=== PATIENT | female | born 1970 | race Caucasian/White ===

== ENCOUNTER 2020-09-03 12:47 | Outpatient (REF) | payer OTHER, SELFPAY ==
[2020-09-03 13:35] LABS: MANUAL DIFF FLAG NO
[2020-09-03 13:37] LABS: Basophils Percent Auto 0.4 % (0-2); Eosinophils Absolute Auto 0.1 X10*3/uL (0.0-0.4); Eosinophils Percent Auto 1.6 % (0-4); Hematocrit 40.9 % (37-47); Hemoglobin 13.4 g/dl (12.0-16.0); Imm Gran Abs Auto 0.03 X10*3/uL (0.00-0.03); Imm Gran Pct Auto 0.4 % (0.0-0.4); Lymphocytes Absolute Auto 1.5 X10*3/uL (1.2-4.9); Lymphocytes Percent Auto 20.7 % (20-40); Mean Corpuscular HGB Conc 32.8 g/dl (31.0-35.0); Mean Corpuscular Hemoglobin 28.3 pg (27.0-33.0); Mean Corpuscular Volume 86.3 fL (80-98); Mean Platelet Volume 11.1 fL (9.4-12.3); Monocytes Absolute Auto 0.5 X10*3/uL (0.1-1.2); Monocytes Percent Auto 6.8 % (2-11); Neutrophils Absolute Auto 5.2 X10*3/uL (2.0-8.3); Neutrophils Percent Auto 70.1 % (45-73); Platelet Count 331 X10*3/uL (160-400); Red Blood Count 4.74 X10*6/uL (4.20-5.50); White Blood Count 7.4 X10*3/uL (4.8-10.8)
[2020-09-03 14:01] LABS: Alanine Aminotransferase 20 U/L (0-31); Albumin Level 4.3 g/dL (3.5-5.0); Alkaline Phosphatase 84 U/L (39-117); Anion Gap 16 (12-20); Aspartate Amino Transferase 16 U/L (5-31); Bilirubin Total 0.6 mg/dL (0.0-1.0); Blood Urea Nitrogen 17 mg/dL (9-16); Calcium 9.3 mg/dL (8.4-10.2); Carbon Dioxide 21 mmol/L (22-29); Chloride 105 mmol/L (96-108); Cholesterol 219 mg/dL; Estimated Glomerular Filt Rate > 60; Glucose Fasting 88 mg/dL (60-99); HDL Cholesterol 54 mg/dL; LDL Cholesterol Calculated 138 mg/dl; Potassium 4.4 mmol/L (3.3-5.1); Sodium 138 mmol/L (135-145); Total Protein 7.3 g/dL (6.5-8.0); Triglycerides 136 mg/dL
[2020-09-03 14:06] LABS: B Type Natriuretic Peptide 59 pg/mL (<100)
[2020-09-03 14:21] LABS: Free T4 (Free Thyroxine) 1.02 ng/dL (0.71-1.85); Thyroid Stimulating Hormone 1.99 uIU/mL (0.32-4.0); Vitamin D 25-OH Total 13.2 ng/mL (>30)
[2020-09-05 14:46] LABS: Thyroid Peroxidase Antibodies 81 IU/mL (<9)
== END 2020-09-03 12:48 | disposition home or self-care (01) ==
LOC: HO.HMGCLDS 12:47
PROVIDERS: PCP Internal Medicine; Visit Provider Internal Medicine
DX: Z00.01 Encounter for general adult medical examination with abnormal findings (principal); M79.89 Other specified soft tissue disorders; R07.89 Other chest pain; I47.1 Supraventricular tachycardia; E03.9 Hypothyroidism, unspecified
CPT/HCPCS: 36415; 80053; 80061; 82306; 83880; 84439; 84443; 85025; 86376

== ENCOUNTER → 2020-09-23 08:59 | Outpatient (BNVA) | payer OTHER, SELFPAY | PROVIDERS: PCP Internal Medicine; Referring Provider Internal Medicine; Visit Provider Internal Medicine Cardiovascular Disease ==

== ENCOUNTER → 2020-09-29 14:55 | Outpatient (REF) | payer OTHER, SELFPAY ==
--- NOTE | 2020-09-29 14:58 | CA_ITS ---
Transthoracic Echocardiogram Patient (Last, First, Middle): Debbi Crowe J Gender: Female Date of : 1970 Age: 50 Procedure Date: 09/29/2020 Procedure Type: Transthoracic Echocardiogram Location: OP Height: 160.02 cm Weight: 108.86 kg BSA: 2.09 m2 Heart Rate: bpm BP: 120 / 50 mmHg Supervisor Speech: YOLIS Vital MD: Satya Wellington MD Group Sales Coordinator: Satya Wellington MD Symptoms: R68.89 - Other general symptoms and signs Study Quality: Technically Difficult/contrast ECG Rhythm: Sinus Conclusions: - 1. Normal LV systolic function with grade 1 diastolic dysfunction 2. Normal cardiac valvular Dopplers 3. Normal RV systolic pressure 4. No pericardial effusion Findings Procedure Information Contrast agent, definity, is being given per protocol without apparent complications. Left Ventricle Normal left ventricular size, thickness, and systolic function. The visually estimated ejection fraction is between 60-65%. Spectral Doppler is indicative of an impaired relaxation filling pattern. E/E prime ratio is <8, consistent with normal filling pressures. Evidence suggests grade I (mild) diastolic dysfunction. Right Ventricle Normal right ventricular cavity size and systolic function. Atria The left atrium is normal in size. Interatrial shunt cannot be excluded. The right atrium is normal in size. Aortic Valve The aortic valve was not well visualized. There is no aortic valve stenosis. There is no aortic valve regurgitation. Mitral Valve Likely normal mitral valve structure and function. There is trace mitral valve regurgitation. There is no mitral valve stenosis. Pulmonic Valve The pulmonic valve was not well visualized. Tricuspid Valve Likely normal tricuspid valve structure and function. There is trace tricuspid valve regurgitation. The right ventricular systolic pressure is normal. The right ventricular systolic pressure is 32 mmHg. Normal right atrial pressure. There is no evidence of pulmonary hypertension. Great Vessels All visible segments of the aorta are normal in size. The pulmonary artery was not well visualized. Venous The inferior vena cava is normal in size and collapses greater than 50% with inspiration. Pericardium/Pleural There is no evidence of pericardial effusion. Prior Study Comparison No prior study available for comparison. Measurements 2D Linear Measurements IVSd: 0.88 0.6-0.9/0.6-1.0 cm LVIDd: 3.89 3.9-5.3/4.2-5.9 cm LVIDd Index: 1.86 2.4-3.2/2.2-3.1 cm/m2 LVIDs: 2.92 2.0-3.6 cm LVPWd: 0.87 0.7-1.1 cm Ao Root: 3.00 2.1-3.5 cm LA Diam: 3.90 2.7-3.8/3.0-4.0 cm LAIDs Index: 1.87 1.5-2.3 cm/m2 LV Mass: 124.97 67-162/88-224 g LV Mass Index: 59.79 43-95/49-115 g/m2 LVOT Diam: 2.00 3.0+(-)1.3 cm Mitral Valve MV Pk E: 1.16 MV PK A: 1.25 MV Decel Time: 194.00 E/A: 0.90 E'Lateral: 9.68 E'Medial: 9.57 E/E' Med: 12.10 E/E' Lat: 12.00 PHT: 57.00 MVA PHT: 3.86 Decel Steele: 6.01 Aortic Valve AoV Pk Agus: 1.92 AoV Mn Agus: 1.35 AoV VTI: 0.43 AoV Pk Grad: 15.00 Aov Mn Grad: 8.00 SURI Cont.VTI: 2.32 LVOT LVOT Pk Gaus: 1.48 LVOT Mn Agus: 0.87 LVOT VTI: 0.32 LVOT Pk Grad: 9.00 LVOT Mn Grad: 4.00 LVOT Diam: 2.00 LVOT Area: 3.14 Diastolic Function MV Pk E: 1.16 MV Pk A: 1.25 E/A: 0.90 E'Medial: 9.57 E/E' Med: 12.10 E' Laterial: 9.68 E/E' Lat: 12.00 Tricuspid Valve TR Pk Agus: 2.44 TR Pk Grad: 24.00 RA Press: 8.00 RVSP: 32.00 Great Vessels Aorta Ao Root-2D: 3.00 2.0-3.7 cm Ao Asc: 2.50 2.1-3.4 cm Ao Arch: 2.50 Updated in Other Vendor System with Status of Final Satya Wellington MD electronically signed on 09/30/2020 8:22:51 AM with status of Final
== END ==
LOC: HO.CARD 14:55
PROVIDERS: Visit Provider Internal Medicine Cardiovascular Disease
DX: R07.89 Other chest pain (principal); R68.89 Other general symptoms and signs; I47.1 Supraventricular tachycardia; I49.3 Ventricular premature depolarization; Z79.899 Other long term (current) drug therapy
CPT/HCPCS: 93306; Q9957

== ENCOUNTER 2020-10-08 10:40 | Outpatient (REF) | payer OTHER, SELFPAY ==
--- NOTE | ~2020-10-08 | MM_ITS ---
EXAMINATION: MM SCREENING DIGITAL BREAST TOMOSYNTHESIS, BILATERAL CLINICAL INFORMATION: Screening. Asymptomatic. Remote outside prior mammography over 10 years ago and no longer available. Family history breast cancer, mother. The lifetime risk of breast cancer based on the Tyrer-Cuzick Model is 13%. COMPARISON: None (current study represents new baseline exam). TECHNIQUE: Digital breast tomosynthesis is performed in both the craniocaudal and mediolateral oblique views along with computer-aided detection (CAD). Synthesized 2D images are generated from the tomosynthesis. Additional left MLO view is provided. FINDINGS: There are scattered areas of fibroglandular density (ACR BI-RADS breast composition Category b). Breast parenchymal pattern borders on predominantly fatty. Background stromal markings are unremarkable. There is no significant mass or architectural abnormality or abnormal calcifications. The axilla and skin contours are unremarkable. MM/MM tomosynthesis screening BI IMPRESSION: No mammographic evidence of malignancy. ASSESSMENT: BI-RADS 1: Negative RECOMMENDATION: Routine annual mammography screening. This patient's information was entered into a reminder system with a target due date for their next mammogram.
== END 2020-10-08 10:41 | disposition home or self-care (01) ==
LOC: HO.MAMMO 10:40
PROVIDERS: Visit Provider Internal Medicine
DX: Z12.31 Encounter for screening mammogram for malignant neoplasm of breast (principal)
CPT/HCPCS: 77063; 77067

== ENCOUNTER → 2020-10-10 08:09 | Outpatient (REF) | payer OTHER, SELFPAY ==
--- NOTE | ~2020-10-10 | NM_ITS ---
Exercise Myocardial perfusion study Indication: Chest pain to evaluate for myocardial ischemia Technique: The patient was brought in for an exercise perfusion study on 10/10/2020. Patient performed exercise as per Marc protocol and was injected 40 mCi of sestamibi was given intravenously one target HR was achieved. Images were obtained using the SPECT gamma camera interlaced with the gating device. Images were obtained in supine position. Resting perfusion study was performed on 10/11/2020. Patient was administered 40 mCi of sestamibi intravenously at rest. Images were then obtained in supine position. Images obtained with and without CT attenuation. Total DLP 133 mGy-cm. Images were processed with the software and compared side to side in short axis, horizontal long axis and vertical long axis views. Findings: The stress perfusion study showed nonattenuated images show minimal thinning of the anterior wall of the LV myocardium. Remainder of the LV myocardium is normally perfused. Attenuation corrected images show mildly reduced uptake in the apex of the LV myocardium.. The gated study shows normal LV systolic function with calculated LVEF of 62%. LV cavity is normal in in size. The gated study shows normal systolic wall thickening and contraction of all segments. There is no transient ischemic dilation. Resting study shows nonattenuated images show normal uptake of radiotracer in all of LV myocardium. Attenuation corrected show mildly reduced uptake apex of the LV myocardium.. Gating at rest reveals normal systolic wall motion with ejection fraction at 63%. The findings are consistent with no clear reversible defect suggestive of ischemia. NM/NM cardiolite stress test Impression: 1. Normal myocardial perfusion 2. Gated LVEF is 63% 3. Transient ischemic dilatation not present Stress EKG is negative for ischemia
--- NOTE | 2020-10-10 08:12 | CA_ITS ---
Acquisition Time: 2020-10-10 08:15:52 Total Exercise Time: 00:05:00 Test Indications: SVT, PAT, PVC Medications: SEE CHART Protocol: CARIN Max HR: 148 BPM 87% of Pred: 169 BPM Max BP: 188/088 mmHG Max Work Load: 7.0 METS Exercise stress test with exercise 5 min of Carin protocol, with moderate shortness of breath, no chest discomfort, with isolated PVC and one atrial cuplet, with normotensive response to exercise, without EKG changes meeting criteria for ischemia. Nuclear images pending. Test reviewed with Dr York. Referred By: Satya Wellington Overread By: EMMANUEL HARDY
== END ==
LOC: HO.CARD 08:09
PROVIDERS: Visit Provider Internal Medicine Cardiovascular Disease
DX: R07.9 Chest pain, unspecified (principal); R68.89 Other general symptoms and signs
CPT/HCPCS: 78452; 93017; A9500; J0153

== ENCOUNTER → 2020-11-03 11:05 | Outpatient (BNVA) | payer OTHER, SELFPAY | PROVIDERS: PCP Internal Medicine; Referring Provider Internal Medicine; Visit Provider Internal Medicine Cardiovascular Disease ==

== ENCOUNTER 2020-11-18 13:43 | Outpatient (REF) | payer OTHER, SELFPAY ==
[2020-11-18 16:31] LABS: MANUAL DIFF FLAG NO
[2020-11-18 16:34] LABS: Basophils Percent Auto 0.1 % (0-2); Eosinophils Absolute Auto 0.1 X10*3/uL (0.0-0.4); Eosinophils Percent Auto 1.5 % (0-4); Hematocrit 41.9 % (37-47); Hemoglobin 13.4 g/dl (12.0-16.0); Imm Gran Abs Auto 0.04 X10*3/uL (0.00-0.03); Imm Gran Pct Auto 0.5 % (0.0-0.4); Lymphocytes Absolute Auto 1.3 X10*3/uL (1.2-4.9); Lymphocytes Percent Auto 17.4 % (20-40); Mean Corpuscular Volume 87.7 fL (80-98); Mean Platelet Volume 11.6 fL (9.4-12.3); Monocytes Absolute Auto 0.7 X10*3/uL (0.1-1.2); Monocytes Percent Auto 8.7 % (2-11); Neutrophils Absolute Auto 5.4 X10*3/uL (2.0-8.3); Neutrophils Percent Auto 71.8 % (45-73); Platelet Count 337 X10*3/uL (160-400); Red Blood Count 4.78 X10*6/uL (4.20-5.50); White Blood Count 7.5 X10*3/uL (4.8-10.8)
[2020-11-18 16:58] LABS: Anion Gap 12 (12-20); Blood Urea Nitrogen 14 mg/dL (9-16); Calcium 9.6 mg/dL (8.4-10.2); Carbon Dioxide 28 mmol/L (22-29); Chloride 105 mmol/L (96-108); Estimated Glomerular Filt Rate 55; Glucose Random 90 mg/dL (60-115); Potassium 4.4 mmol/L (3.3-5.1); Sodium 141 mmol/L (135-145)
[2020-11-18 17:20] LABS: B Type Natriuretic Peptide 27 pg/mL (<100)
[2020-11-18 17:21] LABS: TSH reflex Free T4 2.78 uIU/mL (0.32-4.0)
[2020-11-18 17:32] LABS: Folate 5.5 ng/mL (> or = 4.0); Vitamin B12 225 pg/mL (200-900)
== END 2020-11-18 13:44 | disposition home or self-care (01) ==
LOC: HO.HMGCLDS 13:43
PROVIDERS: PCP Internal Medicine; Visit Provider Nurse Practitioner Family
DX: R60.0 Localized edema (principal)
CPT/HCPCS: 36415; 80048; 82607; 82746; 83880; 84443; 85025

== ENCOUNTER 2020-11-18 15:22 | Outpatient (REF) | payer OTHER, SELFPAY ==
--- NOTE | ~2020-11-18 | US_ITS ---
EXAMINATION: US VENOUS ULTRASOUND WITH DOPPLER LOWER EXTREMITY, BILATERAL CLINICAL INFORMATION: Localized edema and pain. COMPARISON: None TECHNIQUE: Ultrasound of the deep veins is performed from the hip to the calf with compression sonography and color and pulse Doppler assessment. Spectral analysis with color-flow imaging is performed. FINDINGS: RIGHT: There is normal venous compression and respiratory variation and augmented flow. The visualized common femoral vein, superficial femoral vein, profunda femoral vein, popliteal vein, and the trifurcation region shows no evidence of deep venous thrombosis. There is no significant popliteal fossa cyst. LEFT: There is normal venous compression and respiratory variation and augmented flow. The visualized common femoral vein, superficial femoral vein, profunda femoral vein, popliteal vein, and the trifurcation region shows no evidence of deep venous thrombosis. There is no significant popliteal fossa cyst. If the patient's symptoms persist, followup ultrasound in 5 days 7 days might be of value to exclude proximal propagation from a non-visualized calf vein. US/US venous duplex LE BI IMPRESSION: No DVT demonstrated in the bilateral lower extremity.
== END 2020-11-18 15:23 | disposition home or self-care (01) ==
LOC: HO.US 15:22
PROVIDERS: PCP Internal Medicine; Visit Provider Nurse Practitioner Family
DX: R60.0 Localized edema (principal)
CPT/HCPCS: 93970

== ENCOUNTER 2021-02-07 | Outpatient (REF) | payer OTHER, SELFPAY ==
[2021-02-08 13:14] LABS: Influenza A PCR NEGATIVE (Negative); Influenza B PCR NEGATIVE (Negative); Resp Syncy Virus RNA Qual PCR NEGATIVE (Negative); SARS COV2 PCR INHOUSE POSITIVE (Negative)
== END 2021-02-07 00:01 | disposition home or self-care (01) ==
LOC: HO.LNP
PROVIDERS: Visit Provider Internal Medicine
DX: Z20.822 Contact with and (suspected) exposure to COVID-19 (principal); J06.9 Acute upper respiratory infection, unspecified
CPT/HCPCS: 0241U; U0003; U0005

== ENCOUNTER 2021-02-08 20:24 | Emergency (ER) | payer OTHER, SELFPAY ==
--- NOTE | 2021-02-08 | ECG_ITS ---
Test Reason : REPEAT Blood Pressure : / mmHG Vent. Rate : 113 BPM Atrial Rate : 113 BPM P-R Int : 136 ms QRS Dur : 068 ms QT Int : 326 ms P-R-T Axes : 051 019 038 degrees QTc Int : 447 ms Sinus tachycardia Nonspecific T wave abnormality Anterior leads Abnormal ECG Heart rate has decreased Supraventricular tachycardia is no longer Present Referred By: Noemy Mead Electronically Signed By:TRINH RODRIGUEZ MD
[2021-02-08 20:52] VITALS: BP 178/82; PULSE 116; RESP 19; O2SAT 97
--- NOTE | 2021-02-08 20:53 | PC.NURSE ---
6mg adenosine given at 2045, 12 mg adenosine given at [address] Mead at bedside with V/O for both administrations.
--- NOTE | 2021-02-08 20:59 | ED.ARRPALP ---
HPI - Arrhythmia/Palpitations General Chief Complaint: Arrhythmia/Palpitations Stated Complaint: covid positive rapid heart rate Time Seen by Provider: 02/08/21 20:57 History of Present Illness HPI narrative: Patient 50-year-old female with a history SVT in the past. Presented today with having elevated heart rate. Palpitation. Patient attempted to use Valsalva but to no avail. Baseline already on metoprolol. No changes in medication. Patient has been compliant. Recently patient was tested positive for COVID. She had already received her Franky and Franky vaccine back in July Related Data Previous Rx's Medication Instructions Recorded cholecalciferol (vitamin D3) 1,250 1,250 mcg PO QWEEK 90 Days #13 cap 09/08/20 mcg (50,000 unit) capsule metoprolol succinate 50 mg 50 mg PO DAILY #30 tab 09/23/20 tablet,extended release 24 hr (Toprol XL) azithromycin 250 mg tablet See Rx Instructions PO .COMPLEX #6 02/07/21 tab cetirizine 10 mg tablet (Zyrtec) 10 mg PO DAILY PRN #30 tab 02/07/21 Allergies Allergy/AdvReac Type Severity Reaction Status Date / Time Sulfa (Sulfonamide Allergy Mild rash Verified 02/07/21 16:44 Antibiotics) morphine AdvReac Unknown sob if Verified 02/07/21 16:44 given too fast Review of Systems Review of Systems: Positive palpitations No fever no chills Positive coughing upper respiratory symptoms for the last 2 days Tested positive for COVID. Patient already received Franky Franky vaccine in July. All systems reviewed otherwise negative [facility] Past Medical History Attestation statement: The following information was validated with the patient. Medical History Morbid obesity due to excess calories Paroxysmal SVT (supraventricular tachycardia) PAT (paroxysmal atrial tachycardia) PVCs (premature ventricular contractions) Surgical History Hx of colonoscopy Family History Family History Mother Hx of breast cancer CAD (coronary artery disease), Onset Age: 70 Father CAD (coronary artery disease) S/P CABG x 4, Onset Age: 60 Pulmonary embolism, Onset Age: 72 Paternal Grandmother Diabetes mellitus Social History Social History Alcohol intake: never Patient Tobacco Use Status: Never used Tobacco Advance Directives: No Advance Directives Information Provided: No Physical Exam Vital Signs: Vital Signs: Last Vital Signs Pulse 116 H 02/08/21 20:52 Resp 19 02/08/21 20:52 BP 178/82 H 02/08/21 20:52 Pulse Ox 97 02/08/21 20:52 MDM - Arrhythmia/Palpitations MDM Narrative Medical decision making narrative: Patient initially was in SVT. Heart rate of 220. Attempted Valsalva maneuver. Attempted raising the legs up. To no avail. Heart rate still 220. Given 6 of adenosine. No avail patient did not convert. Additional 12 mg of adenosine given. Converted to a sinus pattern. Patient's heart rates dropping to approximately 100 will repeat EKG. Baseline electrolytes ordered. Patient also tested positive for COVID today. Patient is 50 years old is overweight. A potential candidate for regenerate monoclonal antibody. The phone number for antibody given. A message was left at the [facility] [employer] work provider line. Patient is in stable condition. Will discharge home and the electrolytes are normal. Repeat EKG showed a sinus pattern heart rate is 110 WI QRS QT within normal limits is no acute ST segment elevation. Patient back in a sinus rhythm. Will discharge patient home. Differential Diagnosis Differential diagnosis: Likely supraventricular tachycardia Medical Records Attestation: I reviewed the patient's medical records. Lab Data Attestation: I reviewed the patient's lab results. Result diagrams: 02/08/21 21:01 02/08/21 21:01 Labs: Lab Results 02/08/21 02/08/21 Range/Units 21:01 21:01 WBC 5.6 (4.8-10.8) X10*3/uL RBC 4.84 (4.20-5.50) X10*6/uL Hgb 13.6 (12.0-16.0) g/dl Hct 41.1 (37-47) % MCV 84.9 (80-98) fL MCH 28.1 (27.0-33.0) pg MCHC 33.1 (31.0-35.0) g/dl RDW 13.2 (11.0-16.0) % Plt Count 261 (160-400) X10*3/uL MPV 11.0 (9.4-12.3) fL Immature Gran % (Auto) 0.4 (0.0-0.4) % Neut % (Auto) 61.6 (45-73) % Lymph % (Auto) 19.7 L (20-40) % [place] % (Auto) 17.7 H (2-11) % Eos % (Auto) 0.4 (0-4) % Baso % (Auto) 0.2 (0-2) % Lymph # (Auto) 1.1 L (1.2-4.9) X10*3/uL [place] # (Auto) 1.0 (0.1-1.2) X10*3/uL Eos # (Auto) 0.0 (0.0-0.4) X10*3/uL Baso # (Auto) 0.0 (0.0-0.2) X10*3/uL Abs Immat Gran (auto) 0.02 (0.00-0.03) X10*3/uL Absolute Neuts (auto) 3.5 (2.0-8.3) X10*3/uL Absolute Nucleated RBC 0.000 (0.0-0.012) X10*3/uL Nucleated RBC % (auto) 0.0 (0.0-0.2) /100WBC Sodium 138 (135-145) mmol/L Potassium 4.1 (3.3-5.1) mmol/L Chloride 105 (96-108) mmol/L Carbon Dioxide 20 L (22-29) mmol/L Anion Gap 17 (12-20) BUN 13 (9-16) mg/dL Creatinine 0.90 (0.5-1.4) mg/dL Estim Creat Clear Calc TNP Estimated GFR > 60 Random Glucose 126 H (60-115) mg/dL Calcium 9.1 (8.4-10.2) mg/dL Discharge Plan Discharge Clinical Impression: Paroxysmal SVT (supraventricular tachycardia), COVID-19 Patient Disposition: Home, Self-Care Instructions: Supraventricular Tachycardia (ED), COVID-19 (Coronavirus Disease 2019) (ED) Additional Instructions: Please follow-up with [facility] at area code for covid antibody treatment Prescriptions: No Action cholecalciferol (vitamin D3) 1,250 mcg (50,000 unit) capsule 1,250 mcg PO QWEEK 90 Days Qty: 13 RF: 0 cetirizine [Zyrtec] 10 mg tablet 10 mg PO DAILY PRN (Reason: allergy symptoms) Qty: 30 RF: 0 azithromycin 250 mg tablet See Rx Instructions PO .COMPLEX Qty: 6 RF: 0 metoprolol succinate [Toprol XL] 50 mg tablet extended release 24 hr 50 mg PO DAILY Qty: 30 RF: 4 Referrals: Stuart Contreras MD [Physician] - 2 days
[2021-02-08 21:07] LABS: MANUAL DIFF FLAG NO
[2021-02-08 21:09] LABS: Basophils Percent Auto 0.2 % (0-2); Eosinophils Percent Auto 0.4 % (0-4); Hematocrit 41.1 % (37-47); Hemoglobin 13.6 g/dl (12.0-16.0); Imm Gran Abs Auto 0.02 X10*3/uL (0.00-0.03); Imm Gran Pct Auto 0.4 % (0.0-0.4); Lymphocytes Absolute Auto 1.1 X10*3/uL (1.2-4.9); Lymphocytes Percent Auto 19.7 % (20-40); Mean Corpuscular HGB Conc 33.1 g/dl (31.0-35.0); Mean Corpuscular Hemoglobin 28.1 pg (27.0-33.0); Mean Corpuscular Volume 84.9 fL (80-98); Monocytes Percent Auto 17.7 % (2-11); Neutrophils Absolute Auto 3.5 X10*3/uL (2.0-8.3); Neutrophils Percent Auto 61.6 % (45-73); Platelet Count 261 X10*3/uL (160-400); Red Blood Count 4.84 X10*6/uL (4.20-5.50); Red Cell Distribution Width 13.2 % (11.0-16.0); White Blood Count 5.6 X10*3/uL (4.8-10.8)
[2021-02-08 21:21] LABS: Anion Gap 17 (12-20); Blood Urea Nitrogen 13 mg/dL (9-16); Calcium 9.1 mg/dL (8.4-10.2); Carbon Dioxide 20 mmol/L (22-29); Chloride 105 mmol/L (96-108); Estimated Glomerular Filt Rate > 60; Glucose Random 126 mg/dL (60-115); Potassium 4.1 mmol/L (3.3-5.1); Sodium 138 mmol/L (135-145)
--- NOTE | 2021-02-08 21:30 | ECG_ITS ---
Test Reason : TACHYCARDIA Blood Pressure : / mmHG Vent. Rate : 211 BPM Atrial Rate : 000 BPM P-R Int : 000 ms QRS Dur : 066 ms QT Int : 204 ms P-R-T Axes : 000 024 163 degrees QTc Int : 382 ms Poor data quality, interpretation may be adversely affected Supraventricular tachycardia Marked ST abnormality, possible inferolateral subendocardial injury Abnormal ECG No previous ECGs available Referred By: Noemy Mead Electronically Signed By:TIRNH RODRIGUEZ MD
== END 2021-02-08 22:13 | disposition home or self-care (01) ==
PROVIDERS: Emergency Provider Emergency Medicine Emergency Medical Services
DX: I47.1 Supraventricular tachycardia (principal); U07.1 COVID-19
CPT/HCPCS: 36415; 80048; 85025; 93005; 99283

== ENCOUNTER → 2021-05-04 12:19 | Outpatient (BNVA) | payer OTHER, SELFPAY | PROVIDERS: PCP Internal Medicine; Referring Provider Internal Medicine; Visit Provider Internal Medicine Cardiovascular Disease ==

== ENCOUNTER 2021-05-14 02:34 | Emergency (ER) | payer OTHER, SELFPAY ==
--- NOTE | 2021-05-14 | ECG_ITS ---
Test Reason : chest pain Blood Pressure : / mmHG Vent. Rate : 083 BPM Atrial Rate : 083 BPM P-R Int : 226 ms QRS Dur : 114 ms QT Int : 404 ms P-R-T Axes : 053 039 031 degrees QTc Int : 474 ms Sinus rhythm with 1st degree A-V block Right bundle branch block Abnormal ECG When compared with ECG of 14-MAY-2021 02:40, Normal sinus rhythm has replaced Supraventricular tachycardia Vent. rate has decreased BY 117 BPM Right bundle branch block is now Present Referred By: Catracho Pollard Electronically Signed By:HARRISON ALAMO MD
[2021-05-14 02:37] VITALS: PULSE 200
[2021-05-14 02:38] VITALS: BMI 42.5
--- NOTE | 2021-05-14 02:59 | ED_ITS ---
HPI - Chest Pain General Chief Complaint: Chest Pain Stated Complaint: Afib Time Seen by Provider: 05/14/21 02:49 Source: patient Mode of arrival: ambulatory Limitations: no limitations History of Present Illness HPI narrative: 50-year-old female with a history of SVT who presents emergency department for evaluation of rapid heart rate. Patient states that her symptoms began around 1:45 a.m.. She states she felt her heart beating fast. She became lightheaded and dizzy. She also developed a pressure in the center of her chest. She states that feels like someone is sitting on her. The pain is 8/10 and is worse with breathing. She had associated nausea with no vomiting. The patient has a history of SVT and was on a beta-savana but this had to be stopped since she states that was causing her heart to skipped beats. The patient is being referred to an vessel specialist at [facility] but she states that the appointment is not until June 2021. The patient denied being ill in any way prior to the onset of her symptoms. She denied fever, chills, cough, abdominal pain, myalgias, arthralgias, diarrhea. Related Data Home Medications Medication Instructions Recorded Confirmed No Known Home Meds 05/04/21 05/04/21 Allergies Allergy/AdvReac Type Severity Reaction Status Date / Time Sulfa (Sulfonamide Allergy Mild rash Verified 02/20/21 15:05 Antibiotics) morphine AdvReac Unknown sob if Verified 02/20/21 15:05 given too fast Review of Systems Review of Systems: Yes all other systems are reviewed and are negative PMFSH Past Medical History Medical History Morbid obesity due to excess calories Paroxysmal SVT (supraventricular tachycardia) PAT (paroxysmal atrial tachycardia) PVCs (premature ventricular contractions) Surgical History Hx of colonoscopy Family History Family History Mother Hx of breast cancer CAD (coronary artery disease), Onset Age: 70 Father CAD (coronary artery disease) S/P CABG x 4, Onset Age: 60 Pulmonary embolism, Onset Age: 72 Paternal Grandmother Diabetes mellitus Social History Social History Alcohol intake: unknown Patient Tobacco Use Status: Never used Tobacco Use of substances other than those prescribed or required for medical reasons: No Advance Directives: No Advance Directives Information Provided: No Physical Exam Vital Signs: Vital Signs: BMI result Body Mass Index 42.5 Const: General: cooperative and no acute distress Orientation/consciousness: oriented to person and oriented to place Limitations: no limitations HENMT: Head: Yes normal to inspection, Yes normocephalic and Yes atraumatic Ears: external ears normal General nose exam: Normal external nose present Face and sinus: Yes normal facial exam Mouth: Normal oral and palatal mucosa present Throat: Yes posterior oropharynx normal Eyes: General: appearance normal, both eyes and all related structures Pupils: Equal, round and reactive pupils present Neck: Neck: Yes normal visual inspection, Yes no lymphadenopathy, Yes trachea midline and Yes supple Chest: Chest palpation & inspection: normal inspection of the chest and normal palpation of entire chest wall Resp: Effort & Inspection: normal respiratory effort and able to speak in co mplete sentences Auscultation: clear to auscultation bilaterally Cardio: Rate: tachycardic Rhythm: regular rhythm Heart sounds: S1 normal heart sound present, S2 normal heart sound present and no murmurs GI: Inspection: Yes normal to inspection Palpation (GI): Soft to palpation, nontender and no guarding Auscultation: normal bowel sounds : General: Yes no CVA tenderness Back/Spine/Pelvis: Back: no CVA tenderness Skin: General skin exam: no rashes or lesions noted Neuro: General: oriented to person and oriented to place Cranial nerves: Yes CN's II-XII intact bilaterally and Yes Equal, round and reactive pupils present Cognition (Neuro): normal cognition Motor exam (neuro): 5/5 motor strength present throughout Extrem: General: Yes normal to inspection Psych: Appearance: grossly normal Speech and movement: Normal speech and movement present Affect: normal affect Attitude: cooperative Thought process: Normal thought process present Thought content: Normal thought content present Course Course Course Narrative: 50-year-old female with known SVT who presents emergency department for evaluation of sudden onset of rapid heart rate at 1:45 a.m.. Patient had associated lightheadedness nausea and chest pressure. She states she has had similar symptoms in the past with her SVT. Patient tried vagal maneuvers at home but was unable to break the arrhythmia. Vital signs were stable. Exam did reveal rapid heart rate otherwise was unremarkable. I did attempt vagal maneuvers and emergency department (blowing into a syringe) without any success. An IV was obtained and the patient was given adenosine 6 mg IV and she converted to a sinus tachycardia. Post chemical cardioversion, patient's EKG was unremarkable. patient will be discharged home. She was given printed and verbal instructions. MDM - Chest Pain ECG Data ECG #1: Interpretation: 0240: SVT with a rate of 200, normal QRS and QTC intervals, no ST segment elevation, ST segment depression the 3 through V6 ECG #2: Attestation: I personally reviewed and interpreted this ECG as follows: Interpretation: 0302: Sinus rhythm with a rate of 80, normal FL interval QRS duration and QTC interval, no ST segment elevation, no ST segment depression, inverted T-wave in lead 3 and V1, no PACs, no PVCs Discharge Plan Discharge Clinical Impression: Supraventricular tachycardia Patient Disposition: Home, Self-Care Instructions: Supraventricular Tachycardia (ED) Additional Instructions: Your given adenosine 6 mg IV and this did successfully convert your rhythm from an SVT to a normal rhythm. Follow-up with your environmental laboratory technician in 1-2 weeks. Please return to the emergency department if your symptoms get worse or if you develop any symptoms that are concerning to you. Prescriptions: No Action No Known Home Meds RF: 0
[2021-05-14] MEDS: Adenosine 6 MG/2 ML VIAL IVPUSH (03:00)
--- NOTE | 2021-05-14 03:01 | ECG_ITS ---
Test Reason : CHEST PAIN Blood Pressure : / mmHG Vent. Rate : 200 BPM Atrial Rate : 000 BPM P-R Int : 000 ms QRS Dur : 068 ms QT Int : 228 ms P-R-T Axes : 000 026 166 degrees QTc Int : 416 ms Supraventricular tachycardia Marked ST abnormality, possible inferior subendocardial injury Marked ST abnormality, possible anterolateral subendocardial injury Abnormal ECG When compared with ECG of 08-FEB-2021 21:40, Vent. rate has increased BY [address] now depressed in Anterolateral leads Referred By: Catracho Pollard Electronically Signed By:Tip York
--- NOTE | 2021-05-14 03:01 | PC.NURSE ---
PT IN svt, EKG completed, provider in to assess pt. pt placed on monitor, medicated pt Mar. Heart rate down into the 84. Repeat EKG. pt placed on bedside monitor.
[2021-05-14] MEDS: 0.9 % Sodium Chloride 1,000 ML 999 ML IV (03:19)
--- NOTE | 2021-05-14 03:24 | PC.NURSE ---
pt reports feeling she feels much better after medication. Repeat EKG completed heart rate in the 80's. pt able to ambulate to bathroom with a steady gait, reports no dizziness or lightheadness.
[2021-05-14 03:28] VITALS: BP 152/89; PULSE 82; RESP 16; O2SAT 100
== END 2021-05-14 04:25 | disposition home or self-care (01) ==
PROVIDERS: Emergency Provider Emergency Medicine Emergency Medical Services
DX: I47.1 Supraventricular tachycardia (principal); R07.89 Other chest pain; Z79.899 Other long term (current) drug therapy
CPT/HCPCS: 93005; 96374; 96375; 96376; 99285; J0153

== ENCOUNTER 2021-06-29 06:47 | Outpatient (REF) | payer OTHER, SELFPAY ==
[2021-06-29 12:18] LABS: Anion Gap 10 (12-20); Blood Urea Nitrogen 12 mg/dL (9-16); Calcium 8.9 mg/dL (8.4-10.2); Carbon Dioxide 27 mmol/L (22-29); Chloride 105 mmol/L (96-108); Estimated Glomerular Filt Rate > 60; Glucose Fasting 101 mg/dL (60-99); Potassium 4.4 mmol/L (3.3-5.1); Sodium 138 mmol/L (135-145)
== END 2021-06-29 06:48 | disposition home or self-care (01) ==
LOC: HO.HMGCLDS 06:47
PROVIDERS: Visit Provider Internal Medicine
DX: M54.50 Low back pain, unspecified (principal); Z87.442 Personal history of urinary calculi
CPT/HCPCS: 36415; 80048

== ENCOUNTER 2021-08-24 08:53 | Outpatient (REF) | payer OTHER, SELFPAY ==
[2021-08-24 14:08] LABS: CT PCR NOT DETECTED (Not Detect.); NG PCR NOT DETECTED (Not Detect.)
[2021-08-25 03:50] LABS: ~HepC Num1 0.11 S/CO (0.00-0.79); ~Hepatitis C Antibody Nonreactive (Nonreactive)
[2021-08-25 03:51] LABS: HBc Num1 0.07 S/CO (0.00-0.79); HIV AB/AG Nonreactive (Nonreactive); HIV Num 1 0.07 S/CO (0.00-0.99); Hepatitis B Core Antibody Nonreactive (Nonreactive)
[2021-08-25 07:42] LABS: Syphilis Screen Nonreactive (Nonreactive)
[2021-08-25 10:55] LABS: BV Int Neg Control Negative (Negative); BV Int Pos Control Positive (Positive)
[2021-08-28 22:07] LABS: HPV mRNA E6/E7 rflx Not Detected (Not Detected)
== END 2021-08-24 08:54 | disposition home or self-care (01) ==
LOC: HO.LAB 08:53
PROVIDERS: PCP Internal Medicine; Visit Provider Advanced Practice Midwife
DX: Z01.419 Encounter for gynecological examination (general) (routine) without abnormal findings (principal); Z11.51 Encounter for screening for human papillomavirus (HPV); Z11.4 Encounter for screening for human immunodeficiency virus [HIV]; Z20.2 Contact with and (suspected) exposure to infections with a predominantly sexual mode of transmission; N76.0 Acute vaginitis
CPT/HCPCS: 36415; 86704; 86780; 86803; 87389; 87480; 87491; 87510; 87591; 87624; 87660; 88142

== ENCOUNTER 2021-09-19 19:52 | Emergency (ER) | payer OTHER, SELFPAY ==
--- NOTE | 2021-09-19 | ECG_ITS ---
Test Reason : chest pain Blood Pressure : / mmHG Vent. Rate : 208 BPM Atrial Rate : 000 BPM P-R Int : 000 ms QRS Dur : 068 ms QT Int : 216 ms P-R-T Axes : 000 023 191 degrees QTc Int : 402 ms Supraventricular tachycardia Marked ST abnormality, possible inferolateral subendocardial injury Abnormal ECG When compared with ECG of 14-MAY-2021 17:32, Supraventricular tachycardia has replaced Normal sinus rhythm Vent. rate has increased BY 125 BPM Right bundle branch block is no longer Present Referred By: Generic ED Physician Electronically Signed By:HARRISON ALAMO MD
--- NOTE | ~2021-09-19 | XR_ITS ---
EXAMINATION: XR CHEST CLINICAL INFORMATION: Chest pain COMPARISON: None TECHNIQUE: Frontal view of the chest was obtained. FINDINGS: The lungs are well-expanded and clear. The heart size and pulmonary vascularity is normal. No gross bony abnormality seen. XR/XR chest 1V IMPRESSION: Unremarkable chest exam
--- NOTE | ~2021-09-19 | CT_ITS ---
EXAMINATION: CT HEAD WITHOUT CONTRAST CLINICAL INFORMATION: brief trouble speaking perioral tingling COMPARISON: None TECHNIQUE: Contiguous axial imaging was performed from the skull base to vertex without intravenous administration of contrast. Coronal and sagittal reformatted images are performed at CT scanner This CT examination was performed using dose optimization techniques as appropriate, variously including the following: *Automated exposure control *Adjustment of mA and/or kV according to patient size (this includes techniques or standardized protocols for targeted exams where dose is matched to indication/reason for exam; i.e. extremities or head) *Use of iterative reconstruction technique DLP: 674 mGy-cm FINDINGS: There is no evidence of acute intracranial hemorrhage or territorial infarction. No abnormal mass effect or midline shift is seen. Guzman to white matter differentiation is well preserved. No extra-axial fluid collections are identified. The ventricles are normal in size. There is no abnormal attenuation within the brain parenchyma. The osseous structures and soft tissues are normal. The mastoid air cells and visualized portions of the paranasal sinuses are well aerated. CT/CT head/brain wo con IMPRESSION: No acute intracranial pathology.
[2021-09-19 19:56] VITALS: BMI 42.5
[2021-09-19] MEDS: Adenosine 6 MG/2 ML VIAL IVPUSH (20:21)
[2021-09-19 20:22] LABS: MANUAL DIFF FLAG NO
--- NOTE | 2021-09-19 20:23 | ED.CHESTPAIN ---
HPI - Chest Pain General Chief Complaint: Chest Pain Stated Complaint: PT believes to be having heart attack Time Seen by Provider: 09/19/21 20:02 Source: patient Limitations: no limitations History of Present Illness HPI narrative: This is a 51-year-old female who about 30 minutes prior to arrival felt her heart go into PSVT. She has had the same thing previously. She did have associated pain and pressure on her chest. She has had PSVT at least to 3 times previously, has responded to adenosine. She is due to see an staff research associate in October. The patient also complains of some tingling in her lower lip in the midline, no facial weakness, no numbness or weakness in her arms or legs. The patient states that the adenosine tends to work better if her arms and legs or up in the air. She has to be told when the dentist and he is being pushed. Patient notes that she did try Valsalva maneuvers at home for about 15 minutes. Her drove her to the ED. Related Data Home Medications Medication Instructions Recorded Confirmed ibuprofen 200 mg capsule 200 mg PO Q6H PRN 06/28/21 06/28/21 Previous Rx's Medication Instructions Recorded clotrimazole-betamethasone 1 1 appl TOPICAL BID PRN 7 Days #45 g 08/24/21 %-0.05 % topical cream fluconazole 150 mg tablet 150 mg PO ONCE PRN 1 Days #2 tab 08/24/21 (Diflucan) Allergies Allergy/AdvReac Type Severity Reaction Status Date / Time Sulfa (Sulfonamide Allergy Mild rash Verified 09/19/21 19:56 Antibiotics) morphine AdvReac Unknown sob if Verified 09/19/21 19:56 given too fast Review of Systems Review of Systems: Yes all other systems are reviewed and are negative Constitutional: Constitutional: Reports as per HPI and Denies fever(s) Eyes: Eyes: Reports as per HPI and Reports no additional eye complaints ENT: Reports system reviewed and no additional complaints, except as documented, Reports as per HPI, Denies nasal congestion, Denies nasal discharge and Denies sore throat Cardiovascular: Cardiovascular: Reports as per HPI, Reports chest pain and Denies dyspnea Respiratory: Respiratory: Reports as per HPI, Denies cough and Denies dyspnea Gastrointestinal: Gastrointestinal: Reports as per HPI, Denies abdominal pain, Denies diarrhea, Denies nausea and Denies vomiting Musculoskeletal: Musculoskeletal: Reports no additional musculoskeletal complaints and Reports numbness (Midline lower lip) Integumentary/Breasts: Skin/Breast: Reports as per HPI and Denies rash Neurologic: Reports as per HPI, Denies focal weakness and Reports numbness (Midline lower lip) Psychiatric: Psychiatric: Reports no additional psychiatric complaints and Reports as per HPI Endocrine: Endocrine: Reports no additional endocrine complaints and Reports as per HPI Hematologic/Lymphatic: Hematologic/Lymphatic: Reports no additional hematologic/lymphatic complaints, Reports as per HPI and Reports other (No peripheral edema) [facility] Past Medical History Medical History History of kidney stones Morbid obesity due to excess calories Paroxysmal SVT (supraventricular tachycardia) PAT (paroxysmal atrial tachycardia) PVCs (premature ventricular contractions) Right low back pain Surgical History H/O lithotripsy Hx of colonoscopy Family History Family History (Updated 08/24/21 @ 10:33 by Sahara Nuñez) Mother Hx of breast cancer CAD (coronary artery disease), Onset Age: 70 Father CAD (coronary artery disease) S/P CABG x 4, Onset Age: 60 Pulmonary embolism, Onset Age: 72 Paternal Grandmother Diabetes mellitus Maternal Aunt Mental health disorder Maternal Uncle Mental health disorder Maternal Grandmother Ovarian cancer Uterine cancer Son Motor vehicle accident (victim) Social History Social History Housing: House Alcohol intake: never Patient Tobacco Use Status: Never used Tobacco e-Cigarette/Vaping Use: Never Used Use of substances other than those prescribed or required for medical reasons: No Advance Directives: No Advance Directives Information Provided: Yes Patient : No service: No Current occupational status: employed Sexual orientation: Straight/Heterosexual Gender identity: Female Physical Exam Vital Signs: Vital Signs: Last Vital Signs Pulse 107 H 09/19/21 20:48 Resp 27 H 09/19/21 20:48 BP 162/105 H 09/19/21 20:48 Pulse Ox 98 09/19/21 20:48 BMI result Body Mass Index 42.5 PERRLA Conj Allisonia Mucous membranes moist Throat clear Neck supple Lungs CTA Heart tachycardia RRR no murmurs rubs or gallops Abs soft, non tender, non distended Extremities no pitting edema Neuro alert and oriented x 3, non focal Procedures Procedure Narrative Procedure Narrative: Chemical cardioversion for SVT, done with adenosine 6 mg IV. Patient was on the environmental monitoring specialist and pacemaker pads had been placed. MDM - Chest Pain MDM Narrative Medical decision making narrative: Patient with a history of PSVT since she was a teenager. Patient also has a feeling of palpitations at times, states she did in the last 6 months wear an event monitor. Patient had acute onset of tachycardia this evening. Patient appeared anxious. She initially complained of tingling of her bottom lip, not lateralizing. She later had a brief episode just after cardioversion where she felt like she could not speak however this lasted less than a minute or 2 and when I had re-evaluated her after hearing about this the patient was already speaking again. Patient had no facial droop, no arm or leg weakness. She Had no recurrence of symptoms in the emergency department. The patient was cardioverted chemically using adenosine 6 mg IV x1 dose. Patient did have a brief wide complex tachycardia during the time she was converted from SVT to sinus rhythm This patient had brief neurologic symptoms but also appeared very anxious. There are no lateralizing signs or symptoms. I doubt this was a TIA. Patient did have SVT with a heart rate around 200, but no AFib. CT of the brain was negative Critical care time for this life-threatening illness exclusive of all other billable procedures was approximately 35 minutes including initial evaluation of the patient, ordering tests, x-ray interpretation, EKG interpretation, medical consultation, documentation, reevaluation. Lab Data Attestation: I reviewed the patient's lab results. Result diagrams: 09/19/21 20:18 09/19/21 20:18 Labs: Lab Results 09/19/21 09/19/21 09/19/21 Range/Units 20:18 20:18 20:18 WBC 9.8 (4.8-10.8) X10*3/uL RBC 5.04 (4.20-5.50) X10*6/uL Hgb 14.0 (12.0-16.0) g/dl Hct 43.3 (37.0-47.0) % MCV 85.9 (80.0-98.0) fL MCH 27.8 (27.0-33.0) pg MCHC 32.3 (31.0-35.0) g/dl RDW 13.2 (11.0-16.0) % Plt Count 354 (160-400) X10*3/uL MPV 10.7 (9.4-12.3) fL Immature Gran % (Auto) 0.3 (0.0-0.4) % Neut % (Auto) 64.3 (45-73) % Lymph % (Auto) 24.9 (20-40) % Phillips % (Auto) 8.4 (2-11) % Eos % (Auto) 1.9 (0-4) % Baso % (Auto) 0.2 (0-2) % Lymph # (Auto) 2.4 (1.2-4.9) X10*3/uL Phillips # (Auto) 0.8 (0.1-1.2) X10*3/uL Eos # (Auto) 0.2 (0.0-0.4) X10*3/uL Baso # (Auto) 0.0 (0.0-0.2) X10*3/uL Abs Immat Gran (auto) 0.03 (0.00-0.03) X10*3/uL Absolute Neuts (auto) 6.3 (2.0-8.3) x10*3/uL Absolute Nucleated RBC 0.000 (0.0-0.012) X10*3/uL Nucleated RBC % (auto) 0.0 (0.0-0.2) /100WBC Sodium 138 (135-145) mmol/L Potassium 4.1 (3.3-5.1) mmol/L Chloride 104 (96-108) mmol/L Carbon Dioxide 22 (22-29) mmol/L Anion Gap 16 (12-20) BUN 16 (9-16) mg/dL Creatinine 0.96 (0.5-1.4) mg/dL Estim Creat Clear Calc 81.1 Estimated GFR > 60 Random Glucose 147 H (60-115) mg/dL Calcium 10.0 D (8.4-10.2) mg/dL Total Bilirubin 0.4 (0.0-1.0) mg/dL AST 16 (5-31) U/L ALT 22 (0-31) U/L Alkaline Phosphatase 80 (39-117) U/L Troponin I High Sens < 3.5 (<3.5-17.0) ng/L Total Protein 7.6 (6.5-8.0) g/dL Albumin 4.3 (3.5-5.0) g/dL Imaging Data Chest x-ray: Attestation: I personally reviewed and interpreted this imaging study as follows: Radiologist's impression: IMPRESSION: Unremarkable chest exam CT scan - head: Radiologist's impression: MPRESSION: No acute intracranial pathology. ECG Data ECG #1: Attestation: I personally reviewed and interpreted this ECG as follows: ECG interpretation date: 09/19/21 ECG interpretation time: 19:52 Interpretation: SVT with a rate of 208. Diffuse ST depression consistent with rate-related ischemia. ECG #2: Attestation: I personally reviewed and interpreted this ECG as follows: ECG interpretation date: 09/19/21 ECG interpretation time: 19:50 Prior ECG tracings: available for review Interpretation: Sinus tachycardia with a rate of 107. ST depression has largely resolved. There still slight T-wave inversion lead V2 and V3, slight ST depression in lead V3 through V5 Discharge Plan Discharge Clinical Impression: Paroxysmal SVT (supraventricular tachycardia), Anxiety, Facial paresthesia Patient Disposition: Home, Self-Care Instructions: Supraventricular Tachycardia (ED), Anxiety (ED) Additional Instructions: Continue current medications. Follow up with the staff research associate garbage person as scheduled. Return for any new or worsened symptoms Prescriptions: No Action ibuprofen 200 mg capsule 200 mg PO Q6H PRN0RF fluconazole [Diflucan] 150 mg tablet 150 mg PO ONCE PRN (Reason: personal) 1 Days Qty: 2 1RF Rx Instructions: may repeat dose in one week if symptoms do not resolve clotrimazole-betamethasone 1-0.05 % cream 1 appl topical BID PRN (Reason: itching) 7 Days Qty: 45 0RF Interventions: ED Discharge Assessment Last Done: 09/19/21 23:04 Discharge Date/Time: 09/19/21 23:04
--- NOTE | 2021-09-19 20:25 | PC.NURSE ---
Patient was given adenosine 6 mg to convert to normal sinus rhythm. Patient converted to normal sinus rhythm. Blood pressure increased to 160/85 post adenosine and then patient had left sided bottom lip numbness as well as difficulty speaking. Blood pressure increased to 185/105. Provider made aware and this journalists and other writers advocated to scan patient for possible TIA.
[2021-09-19 20:27] LABS: Basophils Percent Auto 0.2 % (0-2); Eosinophils Absolute Auto 0.2 X10*3/uL (0.0-0.4); Eosinophils Percent Auto 1.9 % (0-4); Hematocrit 43.3 % (37.0-47.0); Imm Gran Abs Auto 0.03 X10*3/uL (0.00-0.03); Imm Gran Pct Auto 0.3 % (0.0-0.4); Lymphocytes Absolute Auto 2.4 X10*3/uL (1.2-4.9); Lymphocytes Percent Auto 24.9 % (20-40); Mean Corpuscular HGB Conc 32.3 g/dl (31.0-35.0); Mean Corpuscular Hemoglobin 27.8 pg (27.0-33.0); Mean Corpuscular Volume 85.9 fL (80.0-98.0); Mean Platelet Volume 10.7 fL (9.4-12.3); Monocytes Absolute Auto 0.8 X10*3/uL (0.1-1.2); Monocytes Percent Auto 8.4 % (2-11); Neutrophils Absolute Auto 6.3 x10*3/uL (2.0-8.3); Neutrophils Percent Auto 64.3 % (45-73); Platelet Count 354 X10*3/uL (160-400); Red Blood Count 5.04 X10*6/uL (4.20-5.50); Red Cell Distribution Width 13.2 % (11.0-16.0); White Blood Count 9.8 X10*3/uL (4.8-10.8)
[2021-09-19 20:41] LABS: Alanine Aminotransferase 22 U/L (0-31); Albumin Level 4.3 g/dL (3.5-5.0); Alkaline Phosphatase 80 U/L (39-117); Anion Gap 16 (12-20); Aspartate Amino Transferase 16 U/L (5-31); Bilirubin Total 0.4 mg/dL (0.0-1.0); Blood Urea Nitrogen 16 mg/dL (9-16); Carbon Dioxide 22 mmol/L (22-29); Chloride 104 mmol/L (96-108); Creatinine Clr Calc Pharmacy 81.1; Estimated Glomerular Filt Rate > 60; Glucose Random 147 mg/dL (60-115); Potassium 4.1 mmol/L (3.3-5.1); Sodium 138 mmol/L (135-145); Total Protein 7.6 g/dL (6.5-8.0)
[2021-09-19 20:47] LABS: Troponin-I High Sensitivity < 3.5 ng/L (<3.5-17.0)
[2021-09-19 20:48] VITALS: BP 162/105; PULSE 107; PULSE 108; RESP 27; O2SAT 98
--- NOTE | 2021-09-19 20:49 | PC.NURSE ---
pt a&ox3, pt remains hypertensive/sinus tach on the monitor. chest pain/facial numbness now resolved. pt assisted to bedside commode. pending CT scan.
--- NOTE | 2021-09-20 | ECG_ITS ---
Test Reason : EKG Blood Pressure : / mmHG Vent. Rate : 107 BPM Atrial Rate : 107 BPM P-R Int : 146 ms QRS Dur : 074 ms QT Int : 354 ms P-R-T Axes : 060 035 033 degrees QTc Int : 472 ms Sinus tachycardia Nonspecific ST and T wave abnormality Abnormal ECG When compared with ECG of 19-SEP-2021 19:50, Vent. rate has decreased BY [address] less depressed in Inferior leads ST no longer depressed in Anterolateral leads Nonspecific T wave abnormality now evident in Anterior leads Sinus tachycardia has replaced Supraventricular tachycardia Referred By: Rohit Allen Electronically Signed By:HARRISON ALAMO MD
== END 2021-09-19 23:04 | disposition home or self-care (01) ==
PROVIDERS: Emergency Provider Emergency Medicine; PCP Internal Medicine
DX: I47.1 Supraventricular tachycardia (principal); F41.9 Anxiety disorder, unspecified
CPT/HCPCS: 36415; 70450; 71045; 80053; 84484; 85025; 93005; 96374; 96375; 99284; 99285; J0153

== ENCOUNTER 2021-09-29 07:01 | Outpatient (REF) | payer OTHER, SELFPAY ==
[2021-09-29 08:24] LABS: B Type Natriuretic Peptide 22 pg/mL (<100)
[2021-09-29 12:12] LABS: Anion Gap 14 (12-20); Blood Urea Nitrogen 19 mg/dL (9-16); Carbon Dioxide 25 mmol/L (22-29); Chloride 104 mmol/L (96-108); Estimated Glomerular Filt Rate > 60; Glucose Random 102 mg/dL (60-115); Magnesium 2.3 mg/dL (1.6-2.6); Potassium 4.4 mmol/L (3.3-5.1); Sodium 139 mmol/L (135-145)
== END 2021-09-29 07:02 | disposition home or self-care (01) ==
LOC: HO.HMGCLDS 07:01
PROVIDERS: PCP Internal Medicine; Visit Provider Internal Medicine Cardiovascular Disease
DX: R06.00 Dyspnea, unspecified (principal)
CPT/HCPCS: 36415; 80051; 82565; 82947; 83735; 83880; 84520

== ENCOUNTER 2021-11-23 07:36 | Outpatient (REF) | payer OTHER, SELFPAY ==
[2021-11-23 07:51] LABS: MANUAL DIFF FLAG NO
[2021-11-23 08:07] LABS: Basophils Percent Auto 0.3 % (0-2); Eosinophils Absolute Auto 0.1 X10*3/uL (0.0-0.4); Eosinophils Percent Auto 2.2 % (0-4); Hematocrit 41.7 % (37.0-47.0); Hemoglobin 13.3 g/dl (12.0-16.0); Imm Gran Abs Auto 0.02 X10*3/uL (0.00-0.03); Imm Gran Pct Auto 0.3 % (0.0-0.4); Lymphocytes Absolute Auto 1.2 X10*3/uL (1.2-4.9); Lymphocytes Percent Auto 18.7 % (20-40); Mean Corpuscular HGB Conc 31.9 g/dl (31.0-35.0); Mean Corpuscular Hemoglobin 27.5 pg (27.0-33.0); Mean Corpuscular Volume 86.3 fL (80.0-98.0); Mean Platelet Volume 10.7 fL (9.4-12.3); Monocytes Absolute Auto 0.5 X10*3/uL (0.1-1.2); Monocytes Percent Auto 7.2 % (2-11); Neutrophils Absolute Auto 4.5 x10*3/uL (2.0-8.3); Neutrophils Percent Auto 71.3 % (45-73); Platelet Count 335 X10*3/uL (160-400); Red Blood Count 4.83 X10*6/uL (4.20-5.50); White Blood Count 6.4 X10*3/uL (4.8-10.8)
[2021-11-23 08:24] LABS: INTERNATIONAL NORM RATIO 0.9 (0.9-1.1); Prothrombin Time 10.2 SEC (10.0-13.1)
[2021-11-23 08:38] LABS: Anion Gap 15 (12-20); Blood Urea Nitrogen 13 mg/dL (9-16); Calcium 9.2 mg/dL (8.4-10.2); Carbon Dioxide 26 mmol/L (22-29); Chloride 104 mmol/L (96-108); Estimated Glomerular Filt Rate > 60; Glucose Random 107 mg/dL (60-115); Potassium 4.5 mmol/L (3.3-5.1); Sodium 140 mmol/L (135-145)
== END 2021-11-23 07:37 | disposition home or self-care (01) ==
LOC: HO.LAB 07:36
PROVIDERS: PCP Internal Medicine; Visit Provider Internal Medicine Cardiovascular Disease
DX: I47.1 Supraventricular tachycardia (principal)
CPT/HCPCS: 36415; 80048; 85025; 85610

== ENCOUNTER 2022-01-26 07:57 | Outpatient (REF) | payer OTHER, SELFPAY ==
--- NOTE | ~2022-01-26 | MM_ITS ---
EXAMINATION: MM SCREENING DIGITAL BREAST TOMOSYNTHESIS, BILATERAL CLINICAL INFORMATION: Screening. Asymptomatic. Family history breast cancer, mother. The lifetime risk of breast cancer based on the Tyrer-Cuzick Model is 13%. COMPARISON: Mammography: 10/08/2020 (new baseline). TECHNIQUE: Digital breast tomosynthesis is performed in both the craniocaudal and mediolateral oblique views along with computer-aided detection (CAD). Synthesized 2D images are generated from the tomosynthesis. Additional left MLO view is provided. FINDINGS: There are scattered areas of fibroglandular density (ACR BI-RADS breast composition Category b). There are no significant masses, abnormal calcifications, or other abnormalities. Parenchymal pattern is similar to prior new baseline exam. No architectural abnormality. The axilla and skin contours are unremarkable. No significant changes. MM/MM tomosynthesis screening BI IMPRESSION: No mammographic evidence of malignancy. ASSESSMENT: BI-RADS 1: Negative RECOMMENDATION: Routine annual mammography screening. This patient's information was entered into a reminder system with a target due date for their next mammogram.
== END 2022-01-26 07:58 | disposition home or self-care (01) ==
LOC: HO.MAMMO 07:57
PROVIDERS: Visit Provider Internal Medicine
DX: Z12.31 Encounter for screening mammogram for malignant neoplasm of breast (principal)
CPT/HCPCS: 77063; 77067

== ENCOUNTER 2022-04-28 10:45 | Outpatient (REF) | payer OTHER, SELFPAY ==
[2022-04-28 14:21] LABS: Cholesterol 222 mg/dL; HDL Cholesterol 52 mg/dL; LDL Cholesterol Calculated 146 mg/dl; Triglycerides 123 mg/dL
[2022-04-28 14:38] LABS: TSH reflex Free T4 2.29 uIU/mL (0.32-4.0); Vitamin D 25-OH Total 20.9 ng/mL (>30)
== END 2022-04-28 10:46 | disposition home or self-care (01) ==
LOC: HO.HMGCLDS 10:45
PROVIDERS: PCP Internal Medicine; Visit Provider Internal Medicine
DX: Z00.01 Encounter for general adult medical examination with abnormal findings (principal); I47.1 Supraventricular tachycardia; I49.3 Ventricular premature depolarization; R60.0 Localized edema; E66.01 Morbid (severe) obesity due to excess calories
CPT/HCPCS: 36415; 80061; 82306; 84443

== ENCOUNTER → 2022-08-27 08:47 | Outpatient (BNVA) | payer OTHER, SELFPAY | PROVIDERS: PCP Internal Medicine; Visit Provider Advanced Practice Midwife ==

== ENCOUNTER 2023-01-10 14:03 | Outpatient (AMB) | payer OTHER, SELFPAY ==
--- NOTE | 2023-01-10 14:20 | MHC.PC.OV ---
Vital Signs 01/10/23 14:20 01/10/23 14:27 Height 5 ft 3 in 5 ft 3 in Weight 268 lb BMI 47.5 BP 130/80 Blood Pressure Location Lt brachial Position Sitting Pulse 90 Pulse Source Pulse Oximeter Pulse Oximetry (%) 98 Oxygen Delivery Method Room Air Intake Visit Reasons: Annual Physical Intake Note: patient is here today for her annul PE Allergies Sulfa (Sulfonamide Antibiotics) Allergy (Mild, Verified 01/10/23 15:13) rash morphine Adverse Reaction (Unknown, Verified 01/10/23 15:13) sob if given too fast Medication List - Last Reconciled 01/10/23 by Eneida Albert MD clotrimazole-betamethasone 1-0.05 % 1 appl topical BID PRN 7 days ibuprofen 200 mg PO Q6H PRN Tobacco use date assessed: 01/10/23 Dental Screening Dental Screen Date: 01/10/23 Did you have a dental visit in the last 12 months?: No Did you have a dental problem in the last 6 months where you did not have access to dental care?: No Was dental information given to patient?: Patient has dentist HPI Annual Physical HPI Details 52-year-old lady with dyslipidemia, morbid obesity, IBS and history of PVCs, here today for her physical exam. Had radiofrequency ablation for her PVCs, but still getting episodes of palpitations. Denies any accompanying chest pain, but easily gets short of breath on minimal exertion. She goes to [facility] for her routine Pap and pelvic exam, last pap smear 08/24/21, Last mammogram 01/26/22, and has had a screening colonoscopy done in her 40s. She has had recurrent rash mainly under both breasts specially when the weather is warmer. [facility] Medical History (Updated 01/15/23 @ 00:22 by Eneida Albert MD) Annual visit for general adult medical examination with abnormal findings Vitamin D deficiency Dyslipidemia (high LDL; low HDL) Dyspnea on minimal exertion Irritable bowel syndrome Colon cancer screening History of kidney stones PVCs (premature ventricular contractions) Morbid obesity due to excess calories Paroxysmal SVT (supraventricular tachycardia) Surgical History History of cardiac radiofrequency ablation H/O lithotripsy Hx of colonoscopy Family History Mother Hx of breast cancer CAD (coronary artery disease), Onset Age: 70 Father CAD (coronary artery disease) S/P CABG x 4, Onset Age: 60 Pulmonary embolism, Onset Age: 72 Paternal Grandmother Diabetes mellitus Maternal Aunt Mental health disorder Maternal Uncle Mental health disorder Maternal Grandmother Ovarian cancer Uterine cancer Son Motor vehicle accident (victim) Social History Housing: House Alcohol intake: never Patient Tobacco Use Status: Never used Tobacco e-Cigarette/Vaping Use: Never Used service: No Current occupational status: employed Sexual orientation: Straight/Heterosexual Gender identity: Female Cognitive needs: No Hearing needs: No Vision needs: No Female Reproductive History Menstrual Other: Sees [facility] for routine Pap and pelvic exam Questionnaire PHQ-9 Over the last 2 weeks, how often have you been bothered by any of the following problems? 1. Little interest or pleasure in doing things: not at all 2. Feeling down, depressed, or hopeless: not at all 3. Trouble falling or staying asleep, or sleeping too much: several days 4. Feeling tired or having little energy: several days 5. Poor appetite or overeating: not at all 6. Feeling bad about yourself - or that you are a failure or have let yourself or your family down: not at all 7. Trouble concentrating on things, such as reading the newspaper or watching television: several days 8. Moving or speaking so slowly that other people could have noticed. Or the opposite - being so fidgety or restless that you have been moving around a lot more than usual: not at all 9. Thoughts that you would be better off or of hurting yourself in some way: not at all Total score: 3 Depression Screening Interpretation: Negative 56032 - PHQ-9 Billing: Yes Source: Developed by Drs. Remington Gutierrez, Pao Bradford, Garret Sinclair and colleagues, with an educational jenna from [employer]. Thrive Questionnaire Date Thrive assessed: 01/10/23 I am a: Patient What is your living situation today?: I have a steady place to live Within the past 12 months, did the food you bought not last and you didn't have the money to get more?: Never true Within the past 12 months, did you worry whether your food would run out before you got money to buy more?: Never true Do you have trouble paying for medicines?: No Do you have trouble getting transportation to medical appointments?: No Do you have trouble paying your heating and electricity bill?: No Do you have trouble taking care of your child, family member or friend?: No Do you have trouble with day-to-day activities such as bathing, preparing meals, shopping, managing finances, etc.?: No Are you currently unemployed and looking for a job?: No Are you interested in more education?: No Please select the resources that you would like help with: None AUDIT C Alcohol Use Questionnaire (AUDIT-C) 1. How often do you have a drink containing alcohol?: Never Total Score: 0 ZULMA-7 AMB Questionnaire ZULMA-7 Date ZULMA - 7 assessed: 01/10/23 Feeling nervous, anxious, or on edge: 0 = Not at all Not being able to stop or control worryin = Not at all Worrying too much about different things: 0 = Not at all Trouble relaxin = Not at all Being so restless that it is hard to sit still: 0 = Not at all Becoming easily annoyed or irritable: 0 = Not at all Feeling afraid as if something awful might happen: 0 = Not at all Total ZULMA-7 score (0-4 normal; 5-9 mild; 10-14 moderate; 15-21 severe): 0 Source: Developed by Drs. Remington Gutierrez, Pao Bradford, Garret Sinclair and colleagues, with an educational jenna from [employer]. ZULMA-7 Assessment Billing ZULMA-7 Assessment Tool: ZULMA-7 Assessment [id number] Review of Systems Const Denies fever(s), Denies headache(s), Reports malaise, Reports snoring, Denies weakness and Reports weight gain Eyes Denies change in vision ENT Denies dizziness, Denies headache(s), Denies nasal congestion, Denies nasal discharge and Denies sore throat Card Denies chest pain, Denies chest pain at rest, Denies chest pain with activity, Denies lightheadedness, Denies palpitations and Denies dyspnea Resp Denies cough, Denies dyspnea and Reports snoring GI Denies abdominal pain, Reports bloating and Denies heartburn Denies urinary frequency and Denies dysuria Musc Reports arthralgias (Knees) and Reports stiffness Skin/Breast Details: Complaining recurrent, slightly pruritic rash underneath both breasts, worse when the weather is warmer Denies breast pain, Denies breast mass and Denies change in breast shape Neuro Denies dizziness, Denies headache(s) and Denies weakness Psych Reports no additional complaints Endo Reports no additional complaints and Denies palpitations Augustin/Lymph Denies easy bruising Aller/Immun Reports no additional complaints Physical exam (Primary Care) Vital Signs: Last Vital Signs Pulse 90 01/10/23 14:27 BP 130/80 01/10/23 14:27 Pulse Ox 98 01/10/23 14:27 Oxygen Delivery Method Room Air 01/10/23 14:27 BMI result Body Mass Index 47.5 BMI Assessment/Plan discussion: High BMI High, discussed plan: lifestyle, weight reduction, dietary and physical activity Tobacco/Smoking Status: Tobacco use Status Tobacco use date assessed 01/10/23 01/10/23 14:21 Patient Tobacco Use Status Never used Tobacco 01/10/23 14:21 e-Cigarette/Vaping Use Never Used 01/10/23 14:21 PHQ-9: PHQ-9 Score PHQ-9: Total score 3 01/10/23 15:16 Depression Screening Interpretation: Negative Thrive Assessment: Date of Thrive Assessment Date Thrive assessed 01/10/23 01/10/23 15:16 Const Other: Alert oriented x3, no acute distress noted ambulatory with normal gait Orientation/consciousness: patient oriented x3 [facility] Head: Yes normocephalic Ears: external ears normal, TM's normal bilaterally and EAC's normal General nose exam: Normal external nose present Face and sinus: Yes face symmetric Mouth: Normal oral and palatal mucosa present, oropharynx normal and moist mucous membranes Eyes General: appearance normal, both eyes and all related structures Neck Other: Supple , no lymphadenopathy, thyroid gland nonpalpable Chest Breast/axilla palpation: normal palpation of the breasts Resp Auscultation: clear to auscultation bilaterally Cardio Other: S1-S2 present regular rate and rhythm with occasional skipped beats noted GI Inspection: Yes normal to inspection and Yes obesity Palpation (GI): Soft to palpation, nontender, no guarding and no masses Auscultation: normal bowel sounds General: Yes no CVA tenderness Back/Spine/Pelvis Back: no CVA tenderness and No back tenderness Thoracic/Lumbar Spine: straight leg raise negative bilaterally and paraspinal muscle tenderness on the right in the lower lumbar Skin Other: Erythematous moist patch on under side of both breasts Neuro General: patient oriented x3, gait normal, tone normal, moves all extremities and no focal motor deficits Cranial nerves: Yes CN's II-XII intact bilaterally Cognition (Neuro): normal cognition Gait exam (Neuro): Normal gait present Extrem General: Yes full ROM and Yes edema (Lower have for both lower extremities, nonpitting) Psych Appearance: grossly normal and well kempt Mental Status: mental status grossly normal Speech and movement: Normal speech and movement present Affect: normal affect Attitude: cooperative Thought process: Normal thought process present Assessment and Plan Assessment & Plan (1) Annual visit for general adult medical examination with abnormal findings: Code(s): Z00.01 - Encounter for general adult medical examination with abnormal findings Plan: Will check appropriate labs. Recommended dental visit every 6 months and regular eye exams, at least every 2 years. Take adequate calcium in diet and vitamin-D 3 at 2000 IU per cap once a day, in addition to weight-bearing exercises to help maintain good muscle tone and weight control. Instructed to do self-breast exam, and recommended to get yearly mammogram, due again later this year. She goes to [facility] for her routine Pap and pelvic exam, not due. Referred for screening colonoscopy. Reminded to get her COVID booster and her flu shot for this year (2) PVCs (premature ventricular contractions): Code(s): I49.3 - Ventricular premature depolarization Plan: Referred back to cardiology for further evaluation management (3) Exercise intolerance: Code(s): R68.89 - Other general symptoms and signs Plan: Referred back to Cardiology (4) Dyspnea on minimal exertion: Code(s): R06.09 - Other forms of dyspnea Plan: Cardiology consult obtained (5) Morbid obesity due to excess calories: Code(s): E66.01 - Morbid (severe) obesity due to excess calories Plan: . Discussed need to increase activity and weight reduction. Recommended focusing on improving health instead of dieting. Mediterranean diet is a healthy diet that helps, limit food high in fat, sugar, and calories. Eat slowly, pay attention to portion sizes, plan your meals ahead of time, start regular physical activity, at least 150 minutes of moderate intensity exercise, or 90 minutes per week of vigorous exercise. Keeping a food diary, tracking what you eat and your physical activity can help assess what improvements you can make. There are many health problems associated with being overweight/obese, so it is important to improve your diet and exercise. There are medications and surgical options available, but Lifestyle changes are the 1st step. (6) Skin cancer screening: Code(s): Z12.83 - Encounter for screening for malignant neoplasm of skin Plan: Dermatology consult obtained (7) Colon cancer screening: Code(s): Z12.11 - Encounter for screening for malignant neoplasm of colon Plan: Patient declined colonoscopy will order Cologuard testing (8) Dyslipidemia (high LDL; low HDL): Code(s): E78.5 - Hyperlipidemia, unspecified Plan: Fasting lipid panel ordered, continue with adherence to healthy eating habits and regular exercise. (9) Vitamin D deficiency: Code(s): E55.9 - Vitamin D deficiency, unspecified Plan: Will check vitamin-D level Orders: Orders Basic Metabolic Panel Fasting 01/10/23 E55.9 - Vitamin D deficiency, unspecified, E66.01 - Morbid (severe) obesity due to excess calories, E78.5 - Hyperlipidemia, unspecified, I49.3 - Ventricular premature depolarization, R06.09 - Other forms of dyspnea, R60.0 - Localized edema, R68.89 - Other general symptoms and signs Alanine Aminotransferase 01/10/23 E55.9 - Vitamin D deficiency, unspecified, E66.01 - Morbid (severe) obesity due to excess calories, E78.5 - Hyperlipidemia, unspecified, I49.3 - Ventricular premature depolarization, R06.09 - Other forms of dyspnea, R60.0 - Localized edema, R68.89 - Other general symptoms and signs Complete Blood Count Auto Diff 01/10/23 E55.9 - Vitamin D deficiency, unspecified, E66.01 - Morbid (severe) obesity due to excess calories, E78.5 - Hyperlipidemia, unspecified, I49.3 - Ventricular premature depolarization, R06.09 - Other forms of dyspnea, R60.0 - Localized edema, R68.89 - Other general symptoms and signs TSH reflex Free T4 01/10/23 E55.9 - Vitamin D deficiency, unspecified, E66.01 - Morbid (severe) obesity due to excess calories, E78.5 - Hyperlipidemia, unspecified, I49.3 - Ventricular premature depolarization, R06.09 - Other forms of dyspnea, R60.0 - Localized edema, R68.89 - Other general symptoms and signs Vitamin D 25-OH Total 01/10/23 E55.9 - Vitamin D deficiency, unspecified, E66.01 - Morbid (severe) obesity due to excess calories, E78.5 - Hyperlipidemia, unspecified, I49.3 - Ventricular premature depolarization, R06.09 - Other forms of dyspnea, R60.0 - Localized edema, R68.89 - Other general symptoms and signs Lipid Panel 01/10/23 E55.9 - Vitamin D deficiency, unspecified, E66.01 - Morbid (severe) obesity due to excess calories, E78.5 - Hyperlipidemia, unspecified, I49.3 - Ventricular premature depolarization, R06.09 - Other forms of dyspnea, R60.0 - Localized edema, R68.89 - Other general symptoms and signs Aspartate Amino Transferase 01/10/23 E55.9 - Vitamin D deficiency, unspecified, E66.01 - Morbid (severe) obesity due to excess calories, E78.5 - Hyperlipidemia, unspecified, I49.3 - Ventricular premature depolarization, R06.09 - Other forms of dyspnea, R60.0 - Localized edema, R68.89 - Other general symptoms and signs Referrals Dermatology Referral Z12.83 - Encounter for screening for malignant neoplasm of skin Cologuard Test Z12.11 - Encounter for screening for malignant neoplasm of colon, Z12.12 - Encounter for screening for malignant neoplasm of rectum Cardiology Referral E66.01 - Morbid (severe) obesity due to excess calories, I49.3 - Ventricular premature depolarization, R06.09 - Other forms of dyspnea, R60.0 - Localized edema, R68.89 - Other general symptoms and signs, Z12.11 - Encounter for screening for malignant neoplasm of colon Coding Level of Care Code Est Pt [facility] Care 40-64y([id number]) Diagnoses Annual visit for general adult medical examination with abnormal findings Z00.01 PVCs (premature ventricular contractions) I49.3 Exercise intolerance R68.89 Dyspnea on minimal exertion R06.09 Morbid obesity due to excess calories E66.01 Skin cancer screening Z12.83 Colon cancer screening Z12.11 Dyslipidemia (high LDL; low HDL) E78.5 Vitamin D deficiency E55.9 Additional Codes ZULMA-7 Assessment Billing - ZULMA-7 Assessment Tool: ZULMA-7 Assessment [id number] ([id number])
[2023-01-10 14:27] VITALS: BP 130/80; PULSE 90; O2SAT 98; BMI 47.5
== END 2023-01-10 15:14 | disposition home or self-care (01) ==
PROVIDERS: Visit Provider Internal Medicine
DX: Z00.01 Encounter for general adult medical examination with abnormal findings (principal); E66.01 Morbid (severe) obesity due to excess calories; E55.9 Vitamin D deficiency, unspecified; Z68.42 Body mass index [BMI] 45.0-49.9, adult; I49.3 Ventricular premature depolarization; R68.89 Other general symptoms and signs; R06.09 Other forms of dyspnea; E78.5 Hyperlipidemia, unspecified
CPT/HCPCS: 99396

== ENCOUNTER 2023-02-01 07:23 | Outpatient (REF) | payer OTHER, SELFPAY ==
--- NOTE | ~2023-02-01 | MM_ITS ---
EXAMINATION: MM SCREENING DIGITAL BREAST TOMOSYNTHESIS, BILATERAL CLINICAL INFORMATION: Screening. Asymptomatic. COMPARISON: Mammography: This study is compared with prior exams dating back to 2020. TECHNIQUE: Digital breast tomosynthesis is performed in both the craniocaudal and mediolateral oblique views along with computer-aided detection (CAD). Synthesized 2D images are generated from the tomosynthesis. FINDINGS: The breasts are almost entirely fatty (ACR BI-RADS breast composition Category a). There are no significant masses, abnormal calcifications, or other abnormalities. MM/MM tomosynthesis screening BI IMPRESSION: No mammographic evidence of malignancy. ASSESSMENT: BI-RADS BI-RADS 1 - Negative RECOMMENDATION: Routine annual mammography screening. 1 year F/U This examination should not preclude the clinical evaluation of a suspicious palpable abnormality. This patient's information was entered into a reminder system with a target due date for their next mammogram.
== END 2023-02-01 07:24 | disposition home or self-care (01) ==
LOC: HO.MAMMO 07:23
PROVIDERS: PCP Internal Medicine; Visit Provider Internal Medicine
DX: Z12.31 Encounter for screening mammogram for malignant neoplasm of breast (principal)
CPT/HCPCS: 77063; 77067

== ENCOUNTER → 2023-02-01 07:45 | Outpatient (BNV) | payer OTHER, SELFPAY | PROVIDERS: PCP Internal Medicine; Visit Provider Radiology Diagnostic Radiology | DX: Z12.31 Encounter for screening mammogram for malignant neoplasm of breast (principal) | CPT/HCPCS: 77063; 77067 ==

== ENCOUNTER 2023-02-09 11:38 | Outpatient (REF) | payer OTHER, SELFPAY ==
[2023-02-09 13:36] LABS: MANUAL DIFF FLAG NO
[2023-02-09 13:52] LABS: Basophils Percent Auto 0.3 % (0-2); Eosinophils Absolute Auto 0.1 X10*3/uL (0.0-0.4); Eosinophils Percent Auto 1.8 % (0-4); Hematocrit 42.1 % (37.0-47.0); Hemoglobin 13.9 g/dl (12.0-16.0); Imm Gran Abs Auto 0.02 X10*3/uL (0.00-0.03); Imm Gran Pct Auto 0.3 % (0.0-0.4); Lymphocytes Absolute Auto 1.2 X10*3/uL (1.2-4.9); Lymphocytes Percent Auto 15.6 % (20-40); Mean Corpuscular Hemoglobin 28.2 pg (27.0-33.0); Mean Corpuscular Volume 85.4 fL (80.0-98.0); Mean Platelet Volume 11.1 fL (9.4-12.3); Monocytes Absolute Auto 0.6 X10*3/uL (0.1-1.2); Monocytes Percent Auto 7.8 % (2-11); Neutrophils Absolute Auto 5.5 x10*3/uL (2.0-8.3); Neutrophils Percent Auto 74.2 % (45-73); Platelet Count 311 X10*3/uL (160-400); Red Blood Count 4.93 X10*6/uL (4.20-5.50); White Blood Count 7.4 X10*3/uL (4.8-10.8)
[2023-02-09 14:02] LABS: Alanine Aminotransferase 24 U/L (0-31); Anion Gap 14 (12-20); Aspartate Amino Transferase 18 U/L (5-31); Blood Urea Nitrogen 13 mg/dL (9-16); Calcium 9.6 mg/dL (8.4-10.2); Carbon Dioxide 24 mmol/L (22-29); Chloride 103 mmol/L (96-108); Cholesterol 217 mg/dL (<200); Estimated Glomerular Filt Rate > 60; Glucose Fasting 91 mg/dL (60-99); HDL Cholesterol 49 mg/dL (>40); LDL Cholesterol Calculated 133 mg/dL (<100); Potassium 4.1 mmol/L (3.3-5.1); Sodium 137 mmol/L (135-145); Triglycerides 177 mg/dL (<150)
[2023-02-09 14:17] LABS: TSH reflex Free T4 5.05 uIU/mL (0.32-4.0); Vitamin D 25-OH Total 43.9 ng/mL (>30)
[2023-02-09 15:20] LABS: Free T4 (Free Thyroxine) 1.02 ng/dL (0.71-1.85)
== END 2023-02-09 11:39 | disposition home or self-care (01) ==
LOC: HO.HMGCLDS 11:38
PROVIDERS: PCP Internal Medicine; Visit Provider Internal Medicine
DX: R06.09 Other forms of dyspnea (principal); R60.0 Localized edema; I49.3 Ventricular premature depolarization; R68.89 Other general symptoms and signs; E66.01 Morbid (severe) obesity due to excess calories; E78.5 Hyperlipidemia, unspecified; E55.9 Vitamin D deficiency, unspecified
CPT/HCPCS: 36415; 80048; 80061; 82306; 84439; 84443; 84450; 84460; 85025

== ENCOUNTER 2023-05-20 15:40 | Outpatient (AMB) | payer OTHER, SELFPAY ==
--- NOTE | 2023-05-20 16:03 | A.OFFVIS_ITS ---
Intake Vital Signs 05/20/23 16:04 Height 5 ft 3 in Weight 268 lb 15.423 oz BMI 47.6 BP 110/74 Blood Pressure Location Lt brachial Position Sitting Pulse 90 Intake Visit Reasons: FU/Espinas/VPD Intake Note: Follow-up SVT had ablation with [facility] c/o sob and leg swelling can't sleep without mult pillows Therapeutic Activities Services Worker Required: No Allergies Sulfa (Sulfonamide Antibiotics) Allergy (Mild, Verified 01/10/23 15:13) rash morphine Adverse Reaction (Unknown, Verified 01/10/23 15:13) sob if given too fast HPI HPI Comments History of Present Illness Details Debbi was referred here for further evaluation because of significant exertional shortness of breath. She also complains of generalized swelling and swelling in both lower extremities. She says she feels occasional palpitation like her SVT is going to start but usually does not start. She has very minimal capacity to exert herself including cooking when she gets short of breath. She was diagnosed sleep apnea but was not currently prescribed any CPAP machine. She denies any abdominal distension. She is gained some weight. She denies any associated chest pain. She sleeps semi reclining position. She complains of bilateral arm numbness. Her recent TSH was elevated in the 5 range although T4 was within normal limits. She has currently not on any therapy. COUNT INCLUDES THE [facility] Medical History Annual visit for general adult medical examination with abnormal findings Vitamin D deficiency Dyslipidemia (high LDL; low HDL) Dyspnea on minimal exertion Irritable bowel syndrome Colon cancer screening History of kidney stones PVCs (premature ventricular contractions) Morbid obesity due to excess calories Paroxysmal SVT (supraventricular tachycardia) Surgical History History of cardiac radiofrequency ablation H/O lithotripsy Hx of colonoscopy Family History Mother Hx of breast cancer CAD (coronary artery disease), Onset Age: 70 Father CAD (coronary artery disease) S/P CABG x 4, Onset Age: 60 Pulmonary embolism, Onset Age: 72 Paternal Grandmother Diabetes mellitus Maternal Aunt Mental health disorder Maternal Uncle Mental health disorder Maternal Grandmother Ovarian cancer Uterine cancer Son Motor vehicle accident (victim) Social History Housing: House Alcohol intake: never Patient Tobacco Use Status: Never used Tobacco e-Cigarette/Vaping Use: Never Used service: No Current occupational status: employed Sexual orientation: Straight/Heterosexual Gender identity: Female Cognitive needs: No Hearing needs: No Vision needs: No Review of Systems Const Denies chills, Denies fatigue, Denies fever(s), Denies frequent falls, Denies weakness, Denies weight gain and Denies weight loss ENT Denies dizziness Card Denies chest pain, Denies leg edema, Denies lightheadedness, Denies palpitations , Denies dyspnea, Denies dyspnea on exertion, Denies orthopnea and Denies other (loss of consciousness) Resp Denies cough, Denies dyspnea and Denies dyspnea on exertion GI Denies hematochezia and Denies change in stool character Musc Denies abnormal gait, Denies muscle weakness, Denies numbness, Denies radiating pain into limb and Denies tingling Neuro Denies abnormal gait, Denies dizziness, Denies frequent falls, Denies numbness, Denies tingling and Denies weakness Endo Denies fatigue and Denies palpitations Physical Exam Vital Signs: Last Vital Signs Pulse 90 05/20/23 16:04 BP 110/74 05/20/23 16:04 BMI result Body Mass Index 47.6 Const General: cooperative, comfortable, no acute distress, alert and awake Nutritional Appearance: obese Orientation/consciousness: patient oriented x3 Neck Neck: Yes trachea midline, Yes supple and Yes no JVD Resp Effort & Inspection: normal respiratory effort Auscultation: clear to auscultation bilaterally Cardio Jugular venous distension: no JVD Rate: regular rate Rhythm: regular rhythm Heart sounds: S1 normal heart sound present, S2 normal heart sound present, no click, no gallops and no murmurs GI Auscultation: normal bowel sounds Skin General skin exam: no rashes or lesions noted Neuro General: patient oriented x3 and no focal motor deficits Extrem General: No clubbing, No cyanosis and Yes edema Office Procedures EKG Details: EKG shows normal sinus rhythm with normal EKG [id number], Complete Assessment & Plan Assessment & Plan (1) Dyspnea on minimal exertion: Code(s): R06.09 - Other forms of dyspnea Plan: Patient with very limiting exertional shortness of breath without any overt evidence of fluid overload or congestive heart failure. Although at risk for development of cardiovascular disease. Will obtain echocardiogram to assess for LV systolic and diastolic function. As well as to evaluate for pulmonary hypertension with RV enlargement. If he has any signs of pulmonary hypertension RV enlargement without any other explanation would consider workup for sleep study and treatment of sleep apnea if present. Will also suggest a vasodilating myocardial perfusion imaging to rule out obstructive coronary artery disease. Will suggest baseline blood work including BNP to assess for any other causes of exertional shortness of breath. In absence of any clear organic causes most likely related to deconditioning as well as restrictive abnormality related to weight. Need to pursue weight loss program at that point time and should consider bariatric surgery referral. She is interested in the same. (2) Paroxysmal SVT (supraventricular tachycardia): Code(s): I47.1 - Supraventricular tachycardia Plan: Paroxysmal SVT which has remained suppressed since ablation therapy 2 years ago. Continue avoid stimulants. Likelihood of recurrence is low and this was discussed with her. No pharmacotherapy is recommended. (3) PVCs (premature ventricular contractions): Code(s): I49.3 - Ventricular premature depolarization Plan: Symptoms of intermittent palpitations most likely related to isolated PVCs. These are far and few in between unusually carry benign prognosis. This was discussed with her. Avoid any pharmacotherapy at this point time. Will follow up in the clinic after above-mentioned workup. Thank you for allowing me to partake in the care Orders: Orders Basic Metabolic Panel Today R06.09 - Other forms of dyspnea Complete Blood Count no Diff Today R06.09 - Other forms of dyspnea XR chest 2V Today R06.09 - Other forms of dyspnea B Type Natriuretic Peptide Today R06.09 - Other forms of dyspnea TSH reflex Free T4 Today R06.09 - Other forms of dyspnea CA echo transthoracic complete Today R06.09 - Other forms of dyspnea Coding Level of Care Code Est Pt Level 4 (48808) Diagnoses Dyspnea on minimal exertion R06.09 Paroxysmal SVT (supraventricular tachycardia) I47.1 PVCs (premature ventricular contractions) I49.3 CPT Codes EKG - CPT: 17785-[id number], Complete ([id number])
[2023-05-20 16:04] VITALS: BP 110/74; PULSE 90; BMI 47.6
== END 2023-05-20 16:36 | disposition home or self-care (01) ==
PROVIDERS: PCP Internal Medicine; Visit Provider Internal Medicine Cardiovascular Disease
DX: R06.09 Other forms of dyspnea (principal); I47.10 Supraventricular tachycardia, unspecified; I49.3 Ventricular premature depolarization
CPT/HCPCS: 93010; 99214

== ENCOUNTER 2023-05-20 15:40 | Outpatient (REF) | payer OTHER, SELFPAY ==
--- NOTE | ~2023-05-20 | XR_ITS ---
EXAMINATION: XR CHEST CLINICAL INFORMATION: Dyspnea COMPARISON: 09/19/2021 TECHNIQUE: 2 views of the chest were obtained. FINDINGS: Lungs clear. No pleural effusions. Heart and pulmonary vessels are normal. No congestive failure. XR/XR chest 2V IMPRESSION: No change. No active disease.
[2023-05-20 17:48] LABS: Hematocrit 42.4 % (37.0-47.0); Hemoglobin 13.7 g/dl (12.0-16.0); Mean Corpuscular HGB Conc 32.3 g/dl (31.0-35.0); Mean Corpuscular Hemoglobin 28.4 pg (27.0-33.0); Mean Platelet Volume 11.2 fL (9.4-12.3); Platelet Count 340 X10*3/uL (160-400); Red Blood Count 4.82 X10*6/uL (4.20-5.50); Red Cell Distribution Width 13.4 % (11.0-16.0)
[2023-05-20 18:11] LABS: Anion Gap 15 (12-20); B Type Natriuretic Peptide 17 pg/mL (<100); Blood Urea Nitrogen 15 mg/dL (9-16); Calcium 9.5 mg/dL (8.4-10.2); Carbon Dioxide 26 mmol/L (22-29); Chloride 104 mmol/L (96-108); Estimated Glomerular Filt Rate > 60; Glucose Random 89 mg/dL (60-115); Potassium 4.3 mmol/L (3.3-5.1); Sodium 141 mmol/L (135-145)
[2023-05-20 18:27] LABS: TSH reflex Free T4 3.01 uIU/mL (0.32-4.0)
== END 2023-05-20 15:41 | disposition home or self-care (01) ==
LOC: HO.LAB 15:40
PROVIDERS: PCP Internal Medicine; Visit Provider Internal Medicine Cardiovascular Disease
DX: R06.09 Other forms of dyspnea (principal); I47.10 Supraventricular tachycardia, unspecified; I49.3 Ventricular premature depolarization
CPT/HCPCS: 36415; 71046; 80048; 83880; 84443; 85027; 93005

== ENCOUNTER → 2023-06-25 07:51 | Outpatient (REF) | payer OTHER, SELFPAY ==
--- NOTE | 2023-06-25 07:54 | CA_ITS ---
Transthoracic Echocardiogram Patient (Last, First, Middle): Debbi Crowe J Gender: Female Date of : 1970 Age: 52 Procedure Date: 06/25/2023 Procedure Type: Transthoracic Echocardiogram Location: [facility] [place] Height: 160.02 cm Weight: 113.4 kg BSA: 2.13 m2 Heart Rate: bpm BP: 128 / 80 mmHg Safety Sealer: Referring MD: Satya Wellington MD Symptoms: R06.09 - Other forms of dyspnea Study Quality: Technically Difficult ECG Rhythm: Sinus Conclusions: - Normal left ventricular size and systolic function. There is mildly increased left ventricular wall thickness. The visually estimated ejection fraction is between 60-65%. There is no evidence of regional wall motion abnormalities. Diastolic function is normal for age. - Normal right ventricular cavity size and systolic function. Findings Left Ventricle Normal left ventricular size and systolic function. There is mildly increased left ventricular wall thickness. The visually estimated ejection fraction is between 60-65%. There is no evidence of regional wall motion abnormalities. Diastolic function is normal for age. Right Ventricle Normal right ventricular cavity size and systolic function. Atria The left atrium is normal in size. Aortic Valve The aortic valve structure and function is likely normal. There is no aortic valve stenosis. There is no aortic valve regurgitation. Mitral Valve The mitral valve appears normal. There is no mitral valve regurgitation. There is no mitral valve stenosis. Pulmonic Valve The pulmonic valve is likely normal. Tricuspid Valve Normal tricuspid valve structure. There is no tricuspid valve regurgitation. Normal right atrial pressure. There is no evidence of pulmonary hypertension. Great Vessels All visible segments of the aorta are normal in size. Venous The inferior vena cava is normal in size and collapses greater than 50% with inspiration. Pericardium/Pleural There is no evidence of pericardial effusion. Measurements 2D Linear Measurements IVSd: 1.28 0.6-0.9/0.6-1.0 cm LVIDd: 3.71 3.9-5.3/4.2-5.9 cm LVIDd Index: 1.74 2.4-3.2/2.2-3.1 cm/m2 LVIDs: 2.47 2.0-3.6 cm LVPWd: 1.28 0.7-1.1 cm Ao Root: 2.90 2.1-3.5 cm LA Diam: 4.10 2.7-3.8/3.0-4.0 cm LAIDs Index: 1.92 1.5-2.3 cm/m2 LV Mass: 203.24 67-162/88-224 g LV Mass Index: 95.42 43-95/49-115 g/m2 LVOT Diam: 2.10 3.0+(-)1.3 cm 2D Systolic Function EF 4C: 72.60 >55% EF 2C: 53.50 >55% EF BiP: 63.50 >55% Mitral Valve MV Pk E: 0.76 MV PK A: 0.92 MV Decel Time: 181.00 E/A: 0.80 E'Lateral: 12.00 E'Medial: 7.94 E/E' Med: 9.60 E/E' Lat: 6.40 PHT: 53.00 MVA PHT: 4.15 Decel [place]: 4.21 Aortic Valve AoV Pk Agus: 1.55 AoV Mn Agus: 0.90 AoV VTI: 0.38 AoV Pk Grad: 10.00 Aov Mn Grad: 4.00 SURI Cont.VTI: 2.49 LVOT LVOT Pk Agus: 1.03 LVOT Mn Agus: 0.64 LVOT VTI: 0.27 LVOT Pk Grad: 4.00 LVOT Mn Grad: 2.00 LVOT Diam: 2.10 LVOT Area: 3.46 Diastolic Function MV Pk E: 0.76 MV Pk A: 0.92 E/A: 0.80 E'Medial: 7.94 E/E' Med: 9.60 E' Laterial: 12.00 E/E' Lat: 6.40 Right Ventricle TAPSE (mm): 21.00 TVS' Agus: 10.00 Tricuspid Valve TR Pk Agus: 1.17 TR Pk Grad: 5.00 RA Press: 3.00 RVSP: 8.00 Great Vessels Aorta Ao Root-2D: 2.90 2.0-3.7 cm Ao Asc: 3.20 2.1-3.4 cm Pulmonary Valve PV Pk Agus: 1.05 Peak PV Grad: 4.00 Updated in Other Vendor System with Status of Final Tip York MD electronically signed on 06/25/2023 2:01:40 PM with status of Final
== END ==
LOC: HO.CARD 07:51
PROVIDERS: PCP Internal Medicine; Visit Provider Internal Medicine Cardiovascular Disease
DX: R06.09 Other forms of dyspnea (principal)
CPT/HCPCS: 93306; Q9957

== ENCOUNTER → 2023-06-25 07:54 | Outpatient (BNV) | payer OTHER, SELFPAY | PROVIDERS: PCP Internal Medicine; Visit Provider Internal Medicine Cardiovascular Disease | DX: R06.09 Other forms of dyspnea (principal) | CPT/HCPCS: 93306 ==

== ENCOUNTER → 2023-07-23 09:52 | Outpatient (REF) | payer OTHER, SELFPAY ==
--- NOTE | ~2023-07-23 | NM_ITS ---
Lexiscan Myocardial perfusion study Indication: Shortness of breath, assess for coronary disease, ischemia Technique: The patient was brought in for a Lexiscan perfusion study on 07/23/2023 and was injected 0.4 mg of Lexiscan intravenously. Within a minute of this injection 40 mCi of sestamibi was given intravenously. Images were obtained using the SPECT gamma camera interlaced with the gating device. Images were obtained in supine position. Resting perfusion study was performed on 07/24/2023. Patient was administered 40 mCi of sestamibi intravenously at rest. Images were then obtained in supine position. Images were processed with the software and compared side to side in short axis, horizontal long axis and vertical long axis views. Total DLP 208mGy-cm. Findings: Raw acquisition reviewed. The stress perfusion study showed mildly decreased tracer uptake in the anterior wall. With CT attenuation correction, there is significant improvement suggestive of soft tissue attenuation artifact. The gated study shows normal LV systolic function with calculated LVEF of 68%. LV cavity is normal in size. The gated study shows normal wall thickening and contraction of segments. Resting study shows no significant perfusion abnormality. Gating at rest reveals normal wall motion with ejection fraction at 62%. The findings are consistent with no clear reversible or fixed perfusion defects. NM/NM lia perf SPECT rest & str Impression: 1. Myocardial perfusion imaging study shows normal myocardial perfusion. 2. Gated LVEF is 68% during stress and 62% during rest. 3. Transient ischemic dilatation not present. EKG component of the test reported separately.
--- NOTE | 2023-07-23 09:54 | CA_ITS ---
Acquisition Time: 2023-07-23 09:57:26 Total Exercise Time: 00:02:00 Test Indications: SOB, SVT, PVCS Medications: SEE H Protocol: LEXISCAN Max HR: 110 BPM 65% of Pred: 167 BPM Max BP: 134/082 mmHG Max Work Load: 1.0 METS Pharmacological stress test with Lexiscan injection, while sitting and kicking her legs, with report of lightheadedness, No anginal symptoms, with isolated PVCs, with normotensive response to injection, with nondiagnostic EKG for ischemia. In recovery she was treated with Aminophylline 75mg IVP to reverse lexiscan with improvement in lightheadness and feeling of fatigue. Nuclear images pending. Test reviewed with Dr Wellington. Referred By: Satya Wellington Overread By: EMMANUEL HARDY
== END ==
LOC: HO.CARD 09:52
PROVIDERS: PCP Internal Medicine; Visit Provider Internal Medicine Cardiovascular Disease
DX: R06.09 Other forms of dyspnea (principal)
CPT/HCPCS: 78452; 93017; A9500; J0280; J2785

== ENCOUNTER → 2023-07-23 09:54 | Outpatient (BNV) | payer OTHER, SELFPAY | PROVIDERS: PCP Internal Medicine; Visit Provider Nurse Practitioner Family | DX: R06.02 Shortness of breath (principal) | CPT/HCPCS: 78452; 93016; 93018 ==

== ENCOUNTER 2023-08-09 11:11 | Outpatient (AMB) | payer OTHER, SELFPAY ==
[2023-08-09 11:15] VITALS: BP 130/62; PULSE 81; BMI 47.9
--- NOTE | 2023-08-09 11:15 | MHC.OFFVIS ---
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 She continues to have leg edema. Her BNP level was 17. She has no obvious findings suggestive of congestive heart failure. She is still bothered by the leg edema. She has not been able to lose weight. She says she continues to walk and has [phone] steps every day but has had difficulty losing weight. She also has very bothered by symptoms of PVCs which are extra systoles with palpitations. She has not had a full-blown episode of SVT. [facility] Medical History Annual visit for general adult medical examination with abnormal findings Vitamin D deficiency Dyslipidemia (high LDL; low HDL) Dyspnea on minimal exertion Irritable bowel syndrome Colon cancer screening History of kidney stones PVCs (premature ventricular contractions) Morbid obesity due to excess calories Paroxysmal SVT (supraventricular tachycardia) Surgical History History of cardiac radiofrequency ablation H/O lithotripsy Hx of colonoscopy Family History Mother Hx of breast cancer CAD (coronary artery disease), Onset Age: 70 Father CAD (coronary artery disease) S/P CABG x 4, Onset Age: 60 Pulmonary embolism, Onset Age: 72 Paternal Grandmother Diabetes mellitus Maternal Aunt Mental health disorder Maternal Uncle Mental health disorder Maternal Grandmother Ovarian cancer Uterine cancer Son Motor vehicle accident (victim) Social History Housing: House Alcohol intake: never Patient Tobacco Use Status: Never used Tobacco e-Cigarette/Vaping Use: Never Used service: No Current occupational status: employed Sexual orientation: Straight/Heterosexual Gender identity: Female Cognitive needs: No Hearing needs: No Vision needs: No Review of Systems Const Denies chills, Denies fatigue, Denies fever(s), Denies frequent falls, Denies weakness, Denies weight gain and Denies weight loss ENT Denies dizziness Card Denies chest pain, Denies leg edema, Denies lightheadedness, Denies palpitations, Denies dyspnea and Denies dyspnea on exertion Resp Denies cough, Denies dyspnea and Denies dyspnea on exertion GI Denies hematochezia Musc Denies abnormal gait, Denies muscle weakness, Denies numbness, Denies radiating pain into limb and Denies tingling Neuro Denies abnormal gait, Denies dizziness, Denies frequent falls, Denies numbness, Denies tingling and Denies weakness Endo Denies fatigue and Denies palpitations Physical Exam Vital Signs: Last Vital Signs Pulse 81 08/09/23 11:15 BP 130/62 08/09/23 11:15 BMI result Body Mass Index 47.9 Const General: cooperative, comfortable, no acute distress, alert and awake Nutritional Appearance: obese Orientation/consciousness: patient oriented x3 Neck Neck: Yes trachea midline, Yes supple and Yes no JVD Resp Effort & Inspection: normal respiratory effort Auscultation: clear to auscultation bilaterally Cardio Jugular venous distension: no JVD Rate: regular rate Rhythm: regular rhythm Heart sounds: S1 normal heart sound present, S2 normal heart sound present, no click, no gallops and no murmurs GI Auscultation: normal bowel sounds Skin General skin exam: no rashes or lesions noted Neuro General: patient oriented x3 and no focal motor deficits Extrem General: No clubbing, No cyanosis and Yes edema Assessment & Plan Assessment & Plan (1) Paroxysmal SVT (supraventricular tachycardia): Code(s): I47.1 - Supraventricular tachycardia Category: Medical Plan: Paroxysmal SVT suppressed currently after ablation therapy. She has not had any recurrent episodes despite frequent PVCs. Avoidance of stimulants was discussed. Likelihood of recurrent SVT is low. (2) PVCs (premature ventricular contractions): Code(s): I49.3 - Ventricular premature depolarization Category: Medical Plan: Highly symptomatic PVCs which her very bothersome to her at this point time. Will start on Toprol-XL 25 mg at suppertime to help with her symptoms. Benign nature of isolated PVCs were discussed with her. Continue stress mitigation strategies. Avoidance of stimulants was discussed. (3) Morbid obesity due to excess calories: Code(s): E66.01 - Morbid (severe) obesity due to excess calories Category: Medical Plan: Patient has significant issues with weight. She would like further help with weight management. Have taken the liberty to refer her to bariatric service. Pursue at least consultation but is not keen on pursuing surgical correction. (4) Pedal edema: Code(s): R60.0 - Localized edema Category: Medical Plan: Bilateral pedal edema most likely due to peripheral venous hypertension from obesity. There is no evidence of congestive heart failure. Continue management of weight reduction as well as compression venous stocking. Will follow up in the clinic in 1 year's time, sooner p.r.n.. Thank you for allowing me to partake in her care Orders: Referrals Bariatric Surgery Referral E66.01 - Morbid (severe) obesity due to excess calories Medications: New metoprolol succinate ER (Toprol XL) 25 mg PO DAILY 30 tabs 5RF E66.01 - Morbid (severe) obesity due to excess calories
== END 2023-08-09 11:41 | disposition home or self-care (01) ==
PROVIDERS: PCP Internal Medicine; Visit Provider Internal Medicine Cardiovascular Disease
DX: I47.10 Supraventricular tachycardia, unspecified (principal); I49.3 Ventricular premature depolarization; E66.01 Morbid (severe) obesity due to excess calories; R60.0 Localized edema
CPT/HCPCS: 99214

== ENCOUNTER → 2023-08-09 11:11 | Outpatient (BNVA) | payer OTHER, SELFPAY | PROVIDERS: PCP Internal Medicine; Visit Provider Internal Medicine Cardiovascular Disease ==

== ENCOUNTER 2023-10-31 15:00 | Outpatient (AMB) | payer OTHER, SELFPAY ==
--- NOTE | 2023-10-31 15:32 | A.OFFVIS_ITS ---
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 She is doing well with no concerns: rashes in the folds, and external itching- left side, small sore in the area of her left inner labia she has been using the same cream for the area to help due to the discomfort sometimes hard for her to urinate. She is frequent stools and often wipes causing irritation around the monica anal region. Attempting to eat a healthy diet with calcium and vitamin D. Concerned re: weight gain despite improved diet. Has been seen by her cardiologit and has a follow up with Rheumotoligist. Currently not sexually active. STI testing offered; she declines. Last pap smear; 2021. Last mammogram; 2022. Colonoscopy is UTD. Denies any family history of breast, ovarian or colon cancer. [facility] Medical History Annual visit for general adult medical examination with abnormal findings Vitamin D deficiency Dyslipidemia (high LDL; low HDL) Dyspnea on minimal exertion Irritable bowel syndrome Colon cancer screening History of kidney stones PVCs (premature ventricular contractions) Morbid obesity due to excess calories Paroxysmal SVT (supraventricular tachycardia) Surgical History History of cardiac radiofrequency ablation H/O lithotripsy Hx of colonoscopy Family History Mother Hx of breast cancer CAD (coronary artery disease), Onset Age: 70 Father CAD (coronary artery disease) S/P CABG x 4, Onset Age: 60 Pulmonary embolism, Onset Age: 72 Paternal Grandmother Diabetes mellitus Maternal Aunt Mental health disorder Maternal Uncle Mental health disorder Maternal Grandmother Ovarian cancer Uterine cancer Son Motor vehicle accident (victim) Social History Housing: House Alcohol intake: never Patient Tobacco Use Status: Never used Tobacco e-Cigarette/Vaping Use: Never Used service: No Current occupational status: employed Sexual orientation: Straight/Heterosexual Gender identity: Female Cognitive needs: No Hearing needs: No Vision needs: No Female Reproductive History Menstrual Total pregnancies: 2 Full term: 2 Number of Living Children: 1 Date of last pap smear: 08/24/21 (neg pap and hpv) Date of Mammogram: 02/01/23 (Birad 1) Review of Systems Const All systems reviewed & are unremarkable except as noted in HPI and below Reports as per HPI Eyes Reports no additional complaints ENT Reports no additional complaints Card Reports no additional complaints Resp Reports no additional complaints GI Reports as per HPI and Reports no additional complaints Reports as per HPI Musc Reports no additional complaints Skin/Breast Reports as per HPI Neuro Reports no additional complaints Psych Reports no additional complaints Endo Reports no additional complaints Augustin/Lymph Reports no additional complaints Aller/Immun Reports no additional complaints Physical Exam Vital Signs: Last Vital Signs BP 120/82 10/31/23 15:33 BMI result Body Mass Index 48.2 Const General: cooperative, healthy appearing, no acute distress, well developed and alert Orientation/consciousness: patient oriented x3 HEENT Head: Yes normal to inspection Eyes General: appearance normal, both eyes and all related structures Neck Neck: Yes normal visual inspection Thyroid: Thyroid normal Chest Chest palpation & inspection: normal inspection of the chest and other (no puckering, dimpling, peau de orange, retraction, discharge, masses) Breast/axilla inspection: normal inspection of the breasts Breast/axilla palpation: normal palpation of the breasts Resp Effort & Inspection: normal respiratory effort GI Inspection: Yes normal to inspection and Yes obesity Palpation (GI): Soft to palpation Rectal Exam - Female: deferred Other: External: Left labia inner minora hypopigmentation scattered, at perineum centrally hypopigmentation, perianal appears to be friction rash. No lesions, or thickening. General: Yes bladder normal to palpation External Female Exam: normal external appearance and normal appearance of the urethra Speculum Exam - Vagina: normal appearance of the vagina, normal palpation and normal vaginal discharge Speculum Exam - Cervix: normal appearance of the cervix and normal palpation Bimanual exam- vagina & uterus: normal bimanual exam, normal palpation, uterine size normal, bladder normal to palpation, normal palpation and non-tender Bimanual Exam- Adnexa, other: no masses Skin General skin exam: no rashes or lesions noted Rashes: no rashes Neuro General: patient oriented x3 Cognition (Neuro): normal cognition Extrem General: Yes normal to inspection Psych Attitude: cooperative Thought process: Normal thought process present Assessment & Plan Assessment & Plan (1) Encounter for well woman exam with routine gynecological exam: Code(s): Z01.419 - Encounter for gynecological examination (general) (routine) without abnormal findings Category: Medical Plan Discussed: Current recommendations for pap smears per ASCCP guidelines. Breast awareness, periodic self breast exams and yearly mammogram. Maintain a healthy lifestyle, well balanced diet including Calcium 1,200 mg and Vitamin D 600 IU daily, and routine exercise. Recommendation to have a vulvar biopsy due to the skin changes in chronic itching and irritation. She is agreeable and will schedule. Reviewed skin care for a fungal rash and medication refills placed. Perianal region to apply Vaseline or Aquaphor to protect and coat as a barrier. Contact the office with any postmenopausal bleeding. Patient verbalizes understanding and agrees to the plan of care. She was given opportunity to ask questions and all questions were answered to the best of my ability. 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 This note is constructed using voice recognition software. While every effort has been made to ensure accuracy, package line operator errors may have been included. Medications: New clotrimazole-betamethasone 1-0.05 % 1 appl topical BID 7 days 45 grams 1RF fungal rash clotrimazole-betamethasone 1-0.05 % 1 appl topical BID 7 days 45 grams 1RF fungal rash Coding Level of Care Code New Pt Prev Care 40-64y(56210) Diagnoses Encounter for well woman exam with routine gynecological exam Z01.419
[2023-10-31 15:33] VITALS: BP 120/82; BMI 48.2
== END 2023-10-31 16:17 | disposition home or self-care (01) ==
PROVIDERS: Visit Provider Advanced Practice Midwife
DX: Z01.419 Encounter for gynecological examination (general) (routine) without abnormal findings (principal)
CPT/HCPCS: 99396

== ENCOUNTER → 2023-10-31 15:00 | Outpatient (BNVA) | payer OTHER, SELFPAY | PROVIDERS: Visit Provider Advanced Practice Midwife ==

== ENCOUNTER 2024-06-19 11:55 | Outpatient (AMB) | payer OTHER, SELFPAY ==
--- NOTE | 2024-06-19 13:00 | AM.OFFWIN_ITS ---
Intake Vital Signs 06/19/24 13:06 Weight 278 lb BP 132/90 H Blood Pressure Location Rt brachial Position Sitting Pulse 86 Pulse Source Pulse Oximeter Temp 98.7 F Temp Source Oral Pulse Oximetry (%) 98 Oxygen Delivery Method Room Air Intake Visit Reasons: EP-cold symptoms, ?sinus infection Intake Note: Patient here for head pressure, slight cough, raspy voice that has been present since yesterday. Patient Tobacco Use Status: Never used Tobacco Allergies Sulfa (Sulfonamide Antibiotics) Allergy (Mild, Verified 06/19/24 13:07) rash morphine Adverse Reaction (Unknown, Verified 06/19/24 13:07) sob if given too fast Do you need a note to return to daycare/school/sports/work: Yes HPI HPI Comments History of Present Illness Details History - The patient is a 53-year-old female pr esenting with symptoms indicative of a sinus infection having begun with cold symptoms but worsening with fever and sinus pain since yesterday. - Initial treatment included over-the-co unter medications Coricedin without nasal sprays. - Denies sob or wheezing, hx of asthma o r COPD. - Admits to fevers with tmax 102.5F - She reports recurrent supraventricular tachycardia symptoms despite having undergone an effective ablation two years ago, with a recurrence of the flutter sensation only noted yesterday. - There is evidence of fluid retention p ost heart surgery, along with reported allergies to influenza vaccines and recent COVID-19 vaccination and treatment history. 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 Physical Exam General: Cooperative, healthy appearing, comfortable and no acute distress Orientation/consciousness: Patient oriented x3 Limitations: No limitations Head: Normal to inspection Ears: Hearing grossly normal bilaterally, external ears normal and TM's normal bilaterally Nose: Normal external nose present, Normal nares present and No nasal discharge present Face and sinus: Normal facial exam and Sinuses tender to palpation -maxillary Mouth: Normal oral and palatal mucosa present and moist mucous membranes Throat: Yes tonsils normal, Yes uvula midline. Posterior oropharynx erythema Eyes: Appearance normal, both eyes and all related structures Neck: Normal visual inspection Respiratory: Clear to auscultation bilaterally. Normal respiratory effort, able to speak in complete sentences, Actively coughing, no respiratory distress, not tachypneic, no tripod positioning and no use of accessory muscles Cardiovascular: Regular rate and rhythm. Normal S1 and S2 Skin: No rashes or lesions noted Neuro: Patient oriented x3 Extremities: Normal to inspection and Yes no clubbing, cyanosis or edema PFSH Medical History Annual visit for general adult medical examination with abnormal findings Vitamin D deficiency Dyslipidemia (high LDL; low HDL) Dyspnea on minimal exertion Irritable bowel syndrome Colon cancer screening History of kidney stones PVCs (premature ventricular contractions) Morbid obesity due to excess calories Paroxysmal SVT (supraventricular tachycardia) Surgical History History of cardiac radiofrequency ablation H/O lithotripsy Hx of colonoscopy Family History Mother Hx of breast cancer CAD (coronary artery disease), Onset Age: 70 Father CAD (coronary artery disease) S/P CABG x 4, Onset Age: 60 Pulmonary embolism, Onset Age: 72 Paternal Grandmother Diabetes mellitus Maternal Aunt Mental health disorder Maternal Uncle Mental health disorder Maternal Grandmother Ovarian cancer Uterine cancer Son Motor vehicle accident (victim) Social History Housing: House Alcohol intake: never Patient Tobacco Use Status: Never used Tobacco e-Cigarette/Vaping Use: Never Used service: No Current occupational status: employed Sexual orientation: Straight/Heterosexual Gender identity: Female Cognitive needs: No Hearing needs: No Vision needs: No Review of Systems Const All systems reviewed & are unremarkable except as noted in HPI and below Physical Exam Vital Signs: Last Vital Signs Temp 98.7 F 06/19/24 13:06 Pulse 86 06/19/24 13:06 BP 132/90 H 06/19/24 13:06 Pulse Ox 98 06/19/24 13:06 Oxygen Delivery Method Room Air 06/19/24 13:06 Assessment & Plan Assessment & Plan (1) Sinusitis, acute: Code(s): J01.90 - Acute sinusitis, unspecified Qualifiers: Sinusitis location: maxillary Recurrence: non-recurrent Qualified Code(s): J01.00 - Acute maxillary sinusitis, unspecified Plan: VSS, pt well appearing and PE unremarkable. The main focus is managing the sinus infection, likely viral. Testing for influenza, RSV, and COVID-19 will confirm the diagnosis. Initiate Fluticasone nasal spray to manage sinus congestion, and advise the use of a neti pot. Refrain from antibiotic use as viral sinusitis is suspected. Should symptoms persist beyond two weeks, bacterial causes may be considered. Patient was informed and verbally consented to the use of an ambient scribe for clinic note documentation during this visit Orders: Orders SARS-CoV2/FLU/RSV Today J06.9 - Acute upper respiratory infection, unspecified Medications: New benzonatate 200 mg PO BEDTIME PRN 10 caps 0RF cough fluticasone propionate 50 mcg/actuation administer into each nostril 1 spray intranasal Q12H 16 grams 0RF Coding Level of Care Code Est Pt Level 3 (84639) Diagnoses Acute non-recurrent maxillary sinusitis J01.00 Sinusitis location: maxillary Recurrence: non-recurrent
[2024-06-19 13:06] VITALS: BP 132/90; PULSE 86; TEMP 37.1; O2SAT 98
--- OUTSIDE RECORDS SUMMARY | 2024-06-19 14:13 | XMS_ITS | Clinical Summary ---
Author Organization [facility] Address [address] [place] [address] Care Team Providers Care Nub Card Tender Name Role Phone System, Provider Not In Primary Care Provider Un available Allergies Active Allergy Reactions Criticality Noted Date Comments Sulfa Antibiotics Rash/Dermatitis Low 08/21/2020 Medications Medication Sig Dispensed Refills Start Date End Date Status metoPROLOL SUCCINATE (TOPROL-XL) 50 MG 24 hr tablet Take 1 tablet (50 mg total) by mouth daily. 7 tablet 12/31/2020 Active Social History Tobacco Use Types Packs/Day Years Used Date Smoking Tobacco: Never Assessed Sex and Gender Information Value Date Recorded Sex Assigned at Not on file Gender Identity Not on file Sexual Orientation Not on file Last Filed Vital Signs Vital Sign Reading Time Taken Comments Blood Pressure 139/76 12/31/2020 12:15 PM EDT Pulse 108 12/31/2020 12:15 PM EDT Temperature 37 ??C (98.6 ??F) 12/31/2020 1:16 PM EDT Respiratory Rate 18 12/31/2020 12:15 PM EDT Oxygen Saturation 97% 12/31/2020 12:15 PM EDT Inhaled Oxygen Concentration - - Weight 112 kg (247 lb) 12/31/2020 12:15 PM EDT Height 162.6 cm (5' 4 ) 12/31/2020 12:15 PM EDT Body Mass Index 42.4 12/31/2020 12:15 PM EDT Plan of Treatment Health Maintenance Due Date Last Done Comments Hepatitis C Virus Screening 1970 HIV Screening 1982 DTaP/Tdap/Td Vaccines (1 - Tdap) 1988 Hepatitis B Vaccines (1 of 3 - 19+ 3-dose series) 1988 Pap Smear (Ages 21-65) 1990 Mammogram 2009 Colonoscopy 2014 Pneumococcal Vaccines 50+ (1 of 1 - PCV) 08/04/2019 Zoster (Shingles) Vaccine (1 of 2) 08/04/2019 Influenza Vaccine 11/21/2023 COVID-19 Vaccine (1 - 2023-2 5 season) 2023 Pneumococcal Vaccine: Pediat you (0-5 Years) and At-Risk Patients (6 to 49 Years) Aged Out No longer eligible b ased on patient's age to complete this topic Insurance Payer Benefit Plan / Group Subscriber ID Effective Dates Phone Address [facility] [id number] [address] Care Teams Nub Card Tender Relationship Specialty Start Date End Date System, Provider Not In PCP - General 08/21/20
== END 2024-06-19 14:07 | disposition home or self-care (01) ==
PROVIDERS: PCP Internal Medicine; Visit Provider Physician Assistant
DX: J01.00 Acute maxillary sinusitis, unspecified (principal)

== ENCOUNTER 2024-06-19 11:55 | Outpatient (REF) | payer OTHER, SELFPAY ==
--- OUTSIDE RECORDS SUMMARY | 2024-06-19 15:19 | XMS_ITS | Clinical Summary ---
Author Organization [facility] Address [address] [place] [address] Care Team Providers Care Celery Stripper Name Role Phone System, Provider Not In [...] Group Subscriber ID Effective Dates Phone Address [facility] [id number] [address] Care Teams Celery Stripper Relationship Specialty Start Date End Date System, Provider Not In PCP - General 08/21/20
[2024-06-19 17:33] LABS: Influenza A PCR POSITIVE (Negative); Influenza B PCR NEGATIVE (Negative); Resp Syncy Virus RNA Qual PCR NEGATIVE (Negative); SARS COV2 PCR INHOUSE NEGATIVE (Negative)
== END 2024-06-19 11:56 | disposition home or self-care (01) ==
LOC: HO.LAB 11:55
PROVIDERS: PCP Internal Medicine; Visit Provider Physician Assistant
DX: J01.00 Acute maxillary sinusitis, unspecified (principal); J06.9 Acute upper respiratory infection, unspecified
CPT/HCPCS: 0241U

== ENCOUNTER 2024-08-11 14:18 | Outpatient (AMB) | payer OTHER, SELFPAY ==
--- NOTE | 2024-08-11 15:16 | MHC.OFFVIS ---
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 She continues to have now increased symptoms of fluttering in her chest. In the last 6 months she says she has been having increased symptoms of palpitation where she feels that the SVT to would start but does not. She is very bothered by the symptoms. She was also having increased symptoms of worsening shortness of breath with minimal exertion. Also complains of bilateral lower extremity swelling. Complains of left-sided chest pressure when she lays on her left side. Denies any exertional chest pain. No lightheadedness, syncope. Blood pressure noted to be slightly elevated. He was not been able to lose much weight. [facility] Medical History Annual visit for general adult medical examination with abnormal findings Vitamin D deficiency Dyslipidemia (high LDL; low HDL) Dyspnea on minimal exertion Irritable bowel syndrome Colon cancer screening History of kidney stones PVCs (premature ventricular contractions) Morbid obesity due to excess calories Paroxysmal SVT (supraventricular tachycardia) Surgical History History of cardiac radiofrequency ablation H/O lithotripsy Hx of colonoscopy Family History Mother Hx of breast cancer CAD (coronary artery disease), Onset Age: 70 Father CAD (coronary artery disease) S/P CABG x 4, Onset Age: 60 Pulmonary embolism, Onset Age: 72 Paternal Grandmother Diabetes mellitus Maternal Aunt Mental health disorder Maternal Uncle Mental health disorder Maternal Grandmother Ovarian cancer Uterine cancer Son Motor vehicle accident (victim) Social History Housing: House Alcohol intake: never Patient Tobacco Use Status: Never used Tobacco e-Cigarette/Vaping Use: Never Used service: No Current occupational status: employed Sexual orientation: Straight/Heterosexual Gender identity: Female Cognitive needs: No Hearing needs: No Vision needs: No Review of Systems Const Denies chills, Denies fatigue, Denies fever(s), Denies frequent falls, Denies weakness, Reports weight gain and Denies weight loss ENT Denies dizziness Card Reports chest pain, Reports leg edema, Denies lightheadedness, Reports palpitations, Reports dyspnea and Reports dyspnea on exertion Resp Denies cough, Reports dyspnea and Reports dyspnea on exertion GI Denies hematochezia Musc Denies abnormal gait, Denies muscle weakness, Reports numbness, Denies radiating pain into limb and Reports tingling Neuro Denies abnormal gait, Denies dizziness, Denies frequent falls, Reports numbness, Reports tingling and Denies weakness Endo Denies fatigue and Reports palpitations Physical Exam Vital Signs: Last Vital Signs Pulse 78 08/11/24 15:18 BP 140/80 H 08/11/24 15:18 BMI result Body Mass Index 49.2 Const General: cooperative, comfortable, no acute distress, alert and awake Nutritional Appearance: obese Orientation/consciousness: patient oriented x3 Neck Neck: Yes trachea midline, Yes supple and Yes no JVD Resp Effort & Inspection: normal respiratory effort Auscultation: clear to auscultation bilaterally Cardio Jugular venous distension: no JVD Rate: regular rate Rhythm: regular rhythm Heart sounds: S1 normal heart sound present, S2 normal heart sound present, no click, no gallops and no murmurs GI Auscultation: normal bowel sounds Skin General skin exam: no rashes or lesions noted Neuro General: patient oriented x3 and no focal motor deficits Extrem General: No clubbing, No cyanosis and Yes edema Office Procedures EKG Details: EKG shows normal sinus rhythm normal EKG at 78 beats per minute [id number], Complete Assessment & Plan Assessment & Plan (1) Dyspnea on minimal exertion: Code(s): R06.09 - Other forms of dyspnea Category: Medical Plan: Increasing symptoms of exertional shortness of breath in this middle-aged woman with significant obesity. She does have evidence of leg edema bilaterally but no evidence of JVD. Symptoms are not suggestive of heart failure but would like to rule it out. Suggest a BNP today. Also suggest an echocardiogram to rule out any LV systolic and diastolic function and to rule out any right ventricular dysfunction. In the long run I think she would benefit significantly from weight loss program. She is trying. Consider GLP 1 antagonist to help with weight management. I do not think she would benefit from diuretic regimen. Bilateral leg edema most likely due to peripheral venous hypertension should be treated with compression stockings. (2) Palpitations: Code(s): R00.2 - Palpitations Category: Medical Plan: Increasing symptoms of palpitation highly suggestive of extra systoles most likely PVCs. PACs can also give similar symptoms. Discussed with her. I would suggest her to be started on bisoprolol 5 mg daily as she had not tolerated metoprolol in the past given her elevated blood pressure as well as cardiac arrhythmias. Avoidance of stimulants was discussed. Stress mitigation strategies were discussed. (3) Paroxysmal SVT (supraventricular tachycardia): Code(s): I47.1 - Supraventricular tachycardia Category: Medical Plan: Prior history of SVT status post ablation without any obvious clinical recurrence at this point time. Successful dual pathway ablation in the past. Vagal maneuvers were discussed. Will follow up in the clinic in 1 year's, sooner p.r.n. Orders: Orders Basic Metabolic Panel Today R06.09 - Other forms of dyspnea CA echo transthoracic complete Today R06.09 - Other forms of dyspnea B Type Natriuretic Peptide Today R06.09 - Other forms of dyspnea Medications: New bisoprolol fumarate 5 mg PO DAILY 30 tabs 5RF Coding Level of Care Code Est Pt Level 4 (18728) Complex EM visit Add On G2211 Diagnoses Dyspnea on minimal exertion R06.09 Palpitations R00.2 Paroxysmal SVT (supraventricular tachycardia) I47.1 CPT Codes EKG - CPT: 26869-[id number], Complete ([id number])
[2024-08-11 15:18] VITALS: BP 140/80; PULSE 78; BMI 49.2
--- OUTSIDE RECORDS SUMMARY | 2024-08-11 17:09 | XMS_ITS | Clinical Summary ---
Author Organization [facility] Address [address] [place] [address] Care Team Providers Care Manager Budget Name Role Phone System, Provider Not In Primary Care Provider Un available Allergies Active Allergy Reactions Criticality Noted Date Comments Sulfa Antibiotics Rash/Dermatitis Low 08/21/2020 Medications metoPROLOL SUCCINATE (TOPROL-XL) 50 MG 24 hr tablet Take 1 tablet (50 mg total) by mouth daily. 7 tablet 12/31/2020 Active Social History Tobacco Use Types Packs/Day Years Used Date Smoking Tobacco: Never Assessed Comments No Sex and Gender Information Value Date Recorded Sex Assigned at Not on file Legal Sex Female 4:51 PM EDT Gender Identity Not on file Sexual Orientation [...] patient's age to complete this topic Insurance [facility] Care Teams Manager Budget Relationship Specialty Start Date End Date System, Provider Not In PCP - General 08/21/20
== END 2024-08-11 15:45 | disposition home or self-care (01) ==
LOC: HO.HCS 14:19
PROVIDERS: PCP Internal Medicine; Visit Provider Internal Medicine Cardiovascular Disease
DX: R06.09 Other forms of dyspnea (principal); R00.2 Palpitations; I47.10 Supraventricular tachycardia, unspecified
CPT/HCPCS: 93010; 99214

== ENCOUNTER 2024-08-11 14:18 | Outpatient (REF) | payer OTHER, SELFPAY ==
[2024-08-11 17:30] LABS: Anion Gap 12 (12-20); Blood Urea Nitrogen 13 mg/dL (9-16); Calcium 9.4 mg/dL (8.4-10.2); Carbon Dioxide 26 mmol/L (22-29); Chloride 104 mmol/L (96-108); Estimated Glomerular Filt Rate > 60; Glucose Random 98 mg/dL (60-115); Potassium 4.3 mmol/L (3.3-5.1); Sodium 138 mmol/L (135-145)
[2024-08-11 17:32] LABS: B Type Natriuretic Peptide 34 pg/mL (<100)
--- OUTSIDE RECORDS SUMMARY | 2024-08-11 18:35 | XMS_ITS | Clinical Summary ---
Author Organization [facility] Address [address] [place] [address] Care Team Providers Care Butcher Meat Name Role Phone System, Provider Not In [...] patient's age to complete this topic Insurance [facility] Care Teams Butcher Meat Relationship Specialty Start Date End Date System, Provider Not In PCP - General 08/21/20
== END 2024-08-11 14:19 | disposition home or self-care (01) ==
LOC: HO.LAB 14:18
PROVIDERS: PCP Internal Medicine; Visit Provider Internal Medicine Cardiovascular Disease
DX: R06.09 Other forms of dyspnea (principal); R00.2 Palpitations; I47.10 Supraventricular tachycardia, unspecified
CPT/HCPCS: 36415; 80048; 83880; 93005

== ENCOUNTER → 2024-09-04 14:18 | Outpatient (REF) | payer OTHER, SELFPAY ==
--- NOTE | 2024-09-04 14:20 | CA_ITS ---
Transthoracic Echocardiogram Patient (Last, First, Middle): Debbi Crowe J Gender: Female Date of : 1970 Age: 54 Procedure Date: 09/04/2024 Procedure Type: Transthoracic Echocardiogram Location: OP Height: 160.02 cm Weight: 125.65 kg BSA: 2.22 m2 Heart Rate: bpm BP: 138 / 86 mmHg [place]: TO Referring MD: Satya Wellington MD Media Liaison Officer: Satya Wellington MD Symptoms: R06.09 - Other forms of dyspnea Study Quality: Technically Difficult ECG Rhythm: Sinus Conclusions: - 1. Technically difficult study 2. Normal LV ejection fraction of 65-70% 3. Cardiac valvular Dopplers within normal limits Findings Procedure Information Contrast agent, definity, is being given per protocol without apparent complications. Left Ventricle Normal left ventricular size, thickness, and systolic function. The visually estimated ejection fraction is between 65-70%. There is no evidence of regional wall motion abnormalities. Spectral Doppler is indicative of a normal filling pattern. Right Ventricle The right ventricle was not well visualized. Atria The left atrium was not well visualized. Interatrial shunt cannot be excluded. The right atrium was not well visualized. Aortic Valve The aortic valve was not well visualized. There is no aortic valve stenosis. There is no aortic valve regurgitation. Mitral Valve The mitral valve was not well visualized. There is no mitral valve regurgitation. There is no mitral valve stenosis. Pulmonic Valve The pulmonic valve was not well visualized. Great Vessels The aorta was not well visualized. The pulmonary artery was not well visualized. Venous The inferior vena cava is normal in size. Pericardium/Pleural The pericardium was not well visualized. Prior Study Comparison No significant change compared to prior study dated: 06/25/2023. Measurements 2D Linear Measurements IVSd: 0.89 0.6-0.9/0.6-1.0 cm LVIDd: 4.15 3.9-5.3/4.2-5.9 cm LVIDd Index: 1.87 2.4-3.2/2.2-3.1 cm/m2 LVIDs: 2.65 2.0-3.6 cm LVPWd: 0.78 0.7-1.1 cm LA Diam: 3.60 2.7-3.8/3.0-4.0 cm LAIDs Index: 1.62 1.5-2.3 cm/m2 LV Mass: 131.01 67-162/88-224 g LV Mass Index: 59.01 43-95/49-115 g/m2 LVOT Diam: 2.10 3.0+(-)1.3 cm 2D Systolic Function EF 4C: 69.80 >55% Mitral Valve MV Pk E: 0.72 MV PK A: 0.57 MV Decel Time: 189.00 E/A: 1.30 E'Lateral: 6.42 E'Medial: 5.66 E/E' Med: 12.70 E/E' Lat: 11.20 PHT: 55.00 MVA PHT: 4.00 Decel [place]: 3.80 Aortic Valve AoV Pk Agus: 1.89 AoV Mn Agus: 1.24 AoV VTI: 0.37 AoV Pk Grad: 14.00 Aov Mn Grad: 7.00 SURI Cont.VTI: 2.66 LVOT LVOT Pk Agus: 1.43 LVOT Mn Agus: 0.94 LVOT VTI: 0.29 LVOT Pk Grad: 8.00 LVOT Mn Grad: 4.00 LVOT Diam: 2.10 LVOT Area: 3.46 Diastolic Function MV Pk E: 0.72 MV Pk A: 0.57 E/A: 1.30 E'Medial: 5.66 E/E' Med: 12.70 E' Laterial: 6.42 E/E' Lat: 11.20 Right Ventricle TAPSE (mm): 23.00 TVS' Agus: 10.00 Tricuspid Valve TR Pk Agus: 2.23 TR Pk Grad: 20.00 RA Press: 3.00 RVSP: 23.00 Great Vessels Aorta Ao Asc: 2.80 2.1-3.4 cm Updated in Other Vendor System with Status of Final Satya Wellington MD electronically signed on 09/04/2024 4:34:30 PM with status of Final
--- OUTSIDE RECORDS SUMMARY | 2024-09-04 14:21 | XMS_ITS | Clinical Summary ---
Author Organization [facility] Address [address] [place] [address] Care Team Providers Care Radar Engineering Teacher Name Role Phone System, Provider Not In [...] (1 of 3 - 19+ 3-dose series) 07/21 Pap Smear (Ages 21-65) 1990 Mammogram 2009 Colonoscopy 2014 Pneumococcal Vaccines 50+ (1 of 1 - PCV) 08/04/2019 Zoster (Shingles) Vaccine (1 of 2) 08/04/2019 COVID-19 Vaccine (1 - 2023- season) 2023 Influenza Vaccine 11/20/2024 Insurance [facility] Care Teams Radar Engineering Teacher Relationship Specialty Start Date End Date System, Provider Not In PCP - General 08/21/20
== END ==
LOC: HO.CARD 14:18
PROVIDERS: PCP Internal Medicine; Visit Provider Internal Medicine Cardiovascular Disease
DX: R06.09 Other forms of dyspnea (principal)
CPT/HCPCS: 93306; Q9957

== ENCOUNTER → 2024-09-04 14:20 | Outpatient (BNV) | payer OTHER, SELFPAY | PROVIDERS: PCP Internal Medicine; Visit Provider Internal Medicine Cardiovascular Disease | DX: R06.02 Shortness of breath (principal) | CPT/HCPCS: 93306 ==